=== PATIENT | female | born 1940 | race Asian ===

== ENCOUNTER 2017-01-07 10:37 | Inpatient (IN) | payer OTHER, MEDICAID ==
[2017-01-07] VITALS (25 sets, daily range): BP systolic 116–144; BP diastolic 62–96; PULSE 80–96; RESP 20–32; Ht 152.4 cm; Wt 74.9 kg
[~2017-01-07] VITALS: Ht 152.4 cm; Wt 74.9 kg
[2017-01-07] MEDS ORDERED: HEPARIN 1000 UNITS/ML 10 ML INJ IV STA (10:44)
[2017-01-07] MEDS ORDERED: AMLO-147 PO (10:54)
[2017-01-07] MEDS ORDERED: ATOR20TA38 PO (10:54)
[2017-01-07] MEDS ORDERED: TRIA0.2526 PO (10:54)
[2017-01-07] MEDS ORDERED: OLME40TA14 PO (10:55)
[2017-01-07] MEDS ORDERED: CHLO25TA13 PO (10:55)
[2017-01-07] MEDS ORDERED: METO-336 PO (10:56)
[2017-01-07] MEDS ORDERED: ANAS1TAB PO (10:56)
[2017-01-07] MEDS ORDERED: CELE200C PO (10:56)
[2017-01-07] MEDS ORDERED: ALBU18HF INHALATION (10:56)
[2017-01-07] MEDS ORDERED: LETR2.5T PO (10:57)
[2017-01-07] MEDS ORDERED: SITA100T8 PO (10:57)
--- NOTE | 2017-01-07 10:58 | ERD ---
ER Documentation Chief Complaint Chief Complaint STEMI HPI This is a 76-year-old female with a past medical history of hypertension, hyperlipidemia, diabetes, breast cancer status post left mastectomy, who is presenting with chest pain, nausea and vomiting since last night. The pain persisted this morning so an ambulance was called. Upon community program assistant arrival, there were concerns of a heart attack on EKG. She was given full dose aspirin which actually resolved her chest pain. He does not endorse any diaphoresis. The patient denies lightheadedness or dizziness. The patient currently has no chest pain or shortness of breath. The patient denies feeling sick recently. The patient felt like she might have a fever last night, but this resolved this morning. The patient has had no headache or vision changes. The patient denies abdominal pain or changes to bowel movements or urination. The patient has had no focal deficits. The patient has had no weakness or numbness or tingling to the face or extremities. ROS All systems reviewed and are negative except as per history of present illness. Medications Home Meds Reported Medications Letrozole* (Letrozole*) 2.5 Mg Tablet, 2.5 MG PO DAILY, TAB 01/07/17 Sitagliptin* (Januvia*) 100 Mg Tablet, 100 MG PO DAILY, #30 TAB 01/07/17 Anastrozole* (Arimidex*) 1 Mg Tablet, 1 MG PO DAILY, #30 TAB 01/07/17 Albuterol Sulfate* (Ventolin HFA*) 18 Gm Hfa.aer.ad, 2 PUFF INHALATION Q6H, #1 INHALER 01/07/17 Celecoxib* (Celebrex*) 200 Mg Capsule, 200 MG PO DAILY, CAP 01/07/17 Metoprolol Succinate* (Toprol XL*) 100 Mg Tab.sr.24h, 100 MG PO DAILY, #30 TAB 01/07/17 Chlorthalidone* (Chlorthalidone*) 25 Mg Tablet, 25 MG PO DAILY, TAB 01/07/17 Olmesartan Medoxomil (Benicar) 40 Mg Tablet, 40 MG PO DAILY, #30 TAB 01/07/17 Atorvastatin Calcium* (Atorvastatin Calcium*) 20 Mg Tablet, 20 MG PO QHS, #30 TAB 01/07/17 Amlodipine Besylate* (Amlodipine Besylate*) 10 Mg Tablet, 10 MG PO DAILY, #30 TAB 01/07/17 Triazolam* (Triazolam*) 0.25 Mg Tablet, 0.25 MG PO HS Y for INSOMNIA, TAB 01/07/17 Allergies Allergies: Coded Allergies: Penicillins (Verified Allergy, Unknown, 01/07/17) PMhx/Soc History of Surgery: Yes (abdominal surgery) Hx Neurological Disorder: No Hx Respiratory Disorders: Yes (COPD) Hx Cardiac Disorders: Yes (HTN, HLD, DM) Hx Psychiatric Problems: No Hx Alcohol Use: No Hx Substance Use: No Hx Tobacco Use: No Smoking Status: Never smoker FmHx Family History: coronary disease Physical Exam Vitals Vital Signs Date Time Temp Pulse Resp B/P Pulse Ox O2 Delivery O2 Flow Rate FiO2 01/07/17 11:10 93 20 134/74 99 Nasal Cannula 01/07/17 10:57 94 18 118/75 98 Nasal Cannula 01/07/17 10:43 100.4 95 18 89/54 94 01/07/17 10:37 Nasal Cannula 2 Physical Exam Const: No apparent distress, well-developed, well-nourished Head: Atraumatic Eyes: Normal Conjunctiva. Extraocular movements intact. ENT: Normal External Ears, Nose and Mouth. Neck: Full range of motion. ~ No meningismus. Resp: Clear to auscultation bilaterally Cardio: Tachycardic, regular rhythm, no murmurs Abd: Soft, non tender, non distended, BMI 32, midline abdominal surgical scar. Normal bowel sounds Skin: No petechiae or rashes Back: No midline or flank tenderness Ext: No cyanosis, or edema Neur: Awake and alert, oriented 4. Cranial nerves intact. No facial droop. Normal strength and sensation in all extremities. Coordination with finger to nose normal. Psych: Normal Mood and Affect Result Diagram: 01/07/17 1030 01/07/17 1030 Results 24 hrs Laboratory Tests Test 01/07/17 10:30 White Blood Count 8.010^3/ul Red Blood Count 6.0810^6/ul Hemoglobin 13.5g/dl Hematocrit 41.7% Mean Corpuscular Volume 68.6fl Mean Corpuscular Hemoglobin 22.2pg Mean Corpuscular Hemoglobin Concent 32.4g/dl Red Cell Distribution Width 15.7% Platelet Count 62677^3/UL Mean Platelet Volume 10.5fl Neutrophils % 88.3% Lymphocytes % 10.5% Monocytes % 0.7% Eosinophils % 0.1% Basophils % 0.2% Nucleated Red Blood Cells % 0.0/100WBC Neutrophils # 7.110^3/ul Lymphocytes # 0.810^3/ul Monocytes # 0.110^3/ul Eosinophils # 0.010^3/ul Basophils # 0.010^3/ul Nucleated Red Blood Cells # 0.010^3/ul Sodium Level 132mmol/L Potassium Level 3.7mmol/L Chloride Level 91mmol/L Carbon Dioxide Level 24mmol/L Anion Gap 21 Blood Urea Nitrogen 16mg/dl Creatinine 0.82mg/dl Glucose Level 154mg/dl Calcium Level 9.1mg/dl Troponin I 0.042ng/ml Current Medications Medications (Trade) Dose Ordered Sig/Natalie Route PRN Reason Start Time Stop Time Status Last Admin Dose Admin Heparin Sodium (Porcine) (Heparin (1000 Units/ml)) 5,000 unit ONCE STAT IV 01/07/17 10:44 01/07/17 10:45 DC 01/07/17 10:52 Heparin Sodium (Porcine) (Heparin (1000 Units/ml)) 10,000 unit STK-MED ONCE .ROUTE 01/07/17 11:14 01/07/17 11:15 DC Lidocaine 20 ml 20 ml STK-MED ONCE .ROUTE 01/07/17 11:14 01/07/17 11:15 DC Heparin Sodium/ Sodium Chloride (Heparin 1000 Units/NS (A-Line)) 1,500 ml @ ud STK-MED ONCE .ROUTE 01/07/17 11:14 01/07/17 11:15 DC Fentanyl (Sublimaze) 100 mcg STK-MED ONCE .ROUTE 01/07/17 11:14 01/07/17 11:15 DC Midazolam HCl (Versed) 2 mg STK-MED ONCE .ROUTE 01/07/17 11:14 01/07/17 11:15 DC Verapamil HCl (Verapamil) 5 mg STK-MED ONCE .ROUTE 01/07/17 11:14 01/07/17 11:15 DC Procedures/MDM MDM Patient's presentation warrants further investigation. Based on the community program assistant rhythm strip, I am concerned about acute coronary syndrome. The patient was given full dose aspirin prior to arrival to the ER with improvement of her symptoms. LABS The patient's blood work was obtained and reviewed. The patient seemed shows no leukocytosis or left shift. The patient is afebrile, and I do not suspect a systemic infection. The patient is not anemic today. The patient's platelet count is mildly low at 123, but this does not need to be emergently treated. The patient's BMP shows mild neutropenia and hyperchloremia. The patient also has an anion gap, though her CO2 is unremarkable. The patient's troponin is elevated at 0.042. EKG EKG read by me: Rate/Rhythm: Sinus Tachycardia at 104bpm Intervals: Normal [place]: Left shifted ST elevations in leads I, aVL, V3 through V6 with reciprocal changes in leads III and aVF concerning for a lateral [place]. Impression: Sinus tachycardia with acute [place] IMAGING CXR FINDINGS: The aortic arch is calcified. There is mild cardiomegaly with prominence of interstitial markings, likely due to congestive changes. There is no significant pleural effusion or pneumothorax. Osseous and soft tissue structures are unremarkable. IMPRESSION: Mild cardiomegaly with prominence of interstitial markings, likely due to congestive changes. Aortic atherosclerosis. Electronically viewed and signed by Tim Cullen Physician on 01/07/2017 10:59 TREATMENT/DISPOSITION Given the patient's symptoms and EKG, am concerned about a lateral infarct. A code STEMI was called and the electronic warfare technical on-call called to discuss the case. Dr. Shukla felt that cardiac catheterization was warranted. The patient was febrile in the emergency department, which could be a stress leading to her acute coronary syndrome. The patient did have a low systolic blood pressure 89 initially, but her blood pressure improved and the rest of her vital signs remained stable in the emergency department. She was given IV fluids in the emergency department. In addition to aspirin given prior to arrival, the patient was given heparin in the emergency department. The patient went to cardiac catheterization from the emergency department. She will be admitted to the ICU under the panel service according to her insurance. She was accepted by Dr. Carlos Eduardo Rivers for admission. Departure Diagnosis: Primary Impression: ST elevation myocardial infarction (STEMI) Involved coronary artery: unspecified coronary artery Qualified Code: I21.3 - ST elevation myocardial infarction (STEMI), unspecified artery Condition: TAMIKO Branch MD Jan 07, 2017 10:57
--- NOTE | 2017-01-07 11:00 | RADRPT ---
PROCEDURE: XR Chest. CLINICAL INDICATION: Chest Pain. TECHNIQUE: Single AP view of the chest was obtained. COMPARISON: None FINDINGS: The aortic arch is calcified. There is mild cardiomegaly with prominence of interstitial markings, likely due to congestive change s. There is no significant pleural effusion or pneumothorax. Osseous and soft tissue structures are unremarkable. IMPRESSION: Mild cardiomegaly with prominence of interstitial markings, likely due to congestive changes. Aortic atherosclerosis. RPTAT: EE Physician Yessenia Date Time Electronically viewed and signed by Tim Cullen Physician on 01/07/2017 10:59 /
[2017-01-07] MEDS ORDERED: LIDOCAINE 1% (MDV) 20 ML INJ ONE (11:14)
[2017-01-07] MEDS ORDERED: MIDAZOLAM 1 MG/ML 2 ML INJ ONE (11:14)
[2017-01-07] MEDS ORDERED: FENTAnyl 50 MCG/ML VIAL ONE (11:14)
[2017-01-07] MEDS ORDERED: HEPARIN 1000 UNITS/ML 10 ML INJ ONE (11:14)
[2017-01-07] MEDS ORDERED: VERAPAMIL 5 MG INJ ONE (11:14)
--- NOTE | 2017-01-07 11:25 | CONS ---
Date/Time of Note Date/Time of Note DATE: 01/07/17 TIME: 11:17 Assessment/Plan Assessment/Plan Chief Complaint/Hosp Course patient presents w cp on and off for one day, ekg consistent with stemi Problems: Additional Assessment/Plan STEMI lateral wall htn dm hchol thyroid disease Patient to go to labelling machine operator for possible pci. Discussed w family who translated, risks and benefits mentioned, she agrees to proceed. Further plans post cath. Consultation Date/Type/Reason Admit Date/Time 01/07/2017 Date of Consultation: Jan 07, 2017 Type of Consultation: cardiology Reason for Consultation stemi Hx of Present Illness Patient with dm, htn, dyslipidemia, and thyroid disease, h/o breast ca, presents with chest pain that started yesterday associated with shaking and dyspnea, pain has been intermittent. Son serves as general manager in training as patient speaks Amharic. At present, pain is mild. Patient automatic nailing machine feeder is Dr. Pipe Bro, treated her for per family an enlarged heart and possibly an arrhythmia. No plans for elective surgery in the next year, no allergies to contrast. Constitutional: improved, other (shaking) Eyes: no complaints ENT: no complaints Respiratory: shortness of breath Cardiovascular: chest pain Gastrointestinal: no complaints Genitourinary: no complaints Musculoskeletal: no complaints Skin: no complaints Neurologic: no complaints Endocrine: no complaints Lymphatic: no complaints Psychological: nl mood/affect, no complaints Immunologic: no complaints Past Medical History Medical History: cancer, diabetes, high cholesterol, hypertension, hyperthyroid Past Surgical History breast ca Social History Alcohol Use: none Smoking Status: Never smoker Exam/Review of Systems Vital Signs Vitals Vital Signs Date Time Temp Pulse Resp B/P Pulse Ox O2 Delivery O2 Flow Rate FiO2 01/07/17 11:10 93 20 134/74 99 Nasal Cannula 01/07/17 10:43 100.4 01/07/17 10:37 2 Exam Constitutional: alert (anxious), oriented, well developed Psych: anxiety Head: atraumatic, normocephalic Eyes: EOMI, PERRL, nl conjunctiva, nl lids, nl sclera ENMT: nl external ears & nose, nl lips & teeth, nl nasal mucosa & septum Neck: supple, No jvd Respiratory: clear to auscultation, normal air movement Cardiovascular: nl pulses (dp pulses 1+), regular rate and rhythm Gastrointestinal: nl liver, spleen, non-tender, soft Musculoskeletal: nl extremities to inspection Extremities: No edema Neurological: nl mental status, nl speech Skin: nl turgor, No rash or lesions Results Result Diagram: 01/07/17 1030 01/07/17 1030 Results 24 hrs Laboratory Tests Test 01/07/17 10:30 White Blood Count 8.0 Red Blood Count 6.08 H Hemoglobin 13.5 Hematocrit 41.7 Mean Corpuscular Volume 68.6 L Mean Corpuscular Hemoglobin 22.2 L Mean Corpuscular Hemoglobin Concent 32.4 Red Cell Distribution Width 15.7 H Platelet Count 123 L Mean Platelet Volume 10.5 H Neutrophils % 88.3 H Lymphocytes % 10.5 L Monocytes % 0.7 Eosinophils % 0.1 Basophils % 0.2 Nucleated Red Blood Cells % 0.0 Neutrophils # 7.1 Lymphocytes # 0.8 Monocytes # 0.1 L Eosinophils # 0.0 Basophils # 0.0 Nucleated Red Blood Cells # 0.0 Sodium Level 132 L Potassium Level 3.7 Chloride Level 91 L Carbon Dioxide Level 24 Anion Gap 21 H Blood Urea Nitrogen 16 Creatinine 0.82 Glucose Level 154 Calcium Level 9.1 Troponin I Pending Procedures Procedures EKG shows st elevation in i, avl, v56, v6 with reciprocal depressions in inferior leads CHLOÉ RICHARDSON Jan 07, 2017 11:24
--- NOTE | 2017-01-07 11:25 | CONS ---
Date/Time of Note Date/Time of Note DATE: 01/07/17 TIME: 11:17 Assessment/Plan Assessment/Plan Chief Complaint/Hosp Course patient presents w cp on and off for one day, ekg consistent with stemi Problems: Additional Assessment/Plan STEMI lateral wall htn dm hchol thyroid disease Patient to go to dental laboratory assistant for possible pci. Discussed w family who translated, risks and benefits mentioned, she agrees to proceed. Further plans post cath. Consultation Date/Type/Reason Admit Date/Time 01/07/2017 Date of Consultation: Jan 07, 2017 Type of Consultation: cardiology Reason for Consultation stemi Hx of Present Illness Patient with dm, htn, dyslipidemia, and thyroid disease, h/o breast ca, presents with chest pain that started yesterday associated with shaking and dyspnea, pain has been intermittent. Son serves as wet cleaner machine as patient speaks Occitan. At present, pain is mild. Patient bpo specialist is Dr. Pipe Bro, treated her for per family an enlarged heart and possibly an arrhythmia. No plans for elective surgery in the next year, no allergies to contrast. Constitutional: improved, other (shaking) Eyes: no complaints ENT: no complaints Respiratory: shortness of breath Cardiovascular: chest pain Gastrointestinal: no complaints Genitourinary: no complaints Musculoskeletal: no complaints Skin: no complaints Neurologic: no complaints Endocrine: no complaints Lymphatic: no complaints Psychological: nl mood/affect, no complaints Immunologic: no complaints Past Medical History Medical History: cancer, diabetes, high cholesterol, hypertension, hyperthyroid Past Surgical History breast ca Social History Alcohol Use: none Smoking Status: Never smoker Exam/Review of Systems Vital Signs Vitals Vital Signs Date Time Temp Pulse Resp B/P Pulse Ox O2 Delivery O2 Flow Rate FiO2 01/07/17 11:10 93 20 134/74 99 Nasal Cannula 01/07/17 10:43 100.4 01/07/17 10:37 2 Exam Constitutional: alert (anxious), oriented, well developed Psych: anxiety Head: atraumatic, normocephalic Eyes: EOMI, PERRL, nl conjunctiva, nl lids, nl sclera ENMT: nl external ears & nose, nl lips & teeth, nl nasal mucosa & septum Neck: supple, No jvd Respiratory: clear to auscultation, normal air movement Cardiovascular: nl pulses (dp pulses 1+), regular rate and rhythm Gastrointestinal: nl liver, spleen, non-tender, soft Musculoskeletal: nl extremities to inspection Extremities: No edema Neurological: nl mental status, nl speech Skin: nl turgor, No rash or lesions Results Result Diagram: 01/07/17 1030 01/07/17 1030 Results 24 hrs Laboratory Tests Test 01/07/17 10:30 White Blood Count 8.0 Red Blood Count 6.08 H Hemoglobin 13.5 Hematocrit 41.7 Mean Corpuscular Volume 68.6 L Mean Corpuscular Hemoglobin 22.2 L Mean Corpuscular Hemoglobin Concent 32.4 Red Cell Distribution Width 15.7 H Platelet Count 123 L Mean Platelet Volume 10.5 H Neutrophils % 88.3 H Lymphocytes % 10.5 L Monocytes % 0.7 Eosinophils % 0.1 Basophils % 0.2 Nucleated Red Blood Cells % 0.0 Neutrophils # 7.1 Lymphocytes # 0.8 Monocytes # 0.1 L Eosinophils # 0.0 Basophils # 0.0 Nucleated Red Blood Cells # 0.0 Sodium Level 132 L Potassium Level 3.7 Chloride Level 91 L Carbon Dioxide Level 24 Anion Gap 21 H Blood Urea Nitrogen 16 Creatinine 0.82 Glucose Level 154 Calcium Level 9.1 Troponin I Pending Procedures Procedures EKG shows st elevation in i, avl, v56, v6 with reciprocal depressions in inferior leads CHLOÉ RICHARDSON Jan 07, 2017 11:24
--- NOTE | 2017-01-07 11:25 | CONS ---
Date/Time of Note Date/Time of Note DATE: 01/07/17 TIME: 11:17 Assessment/Plan Assessment/Plan Chief Complaint/Hosp Course patient presents w cp on and off for one day, ekg consistent with stemi Problems: Additional Assessment/Plan STEMI lateral wall htn dm hchol thyroid disease Patient to go to laboratory phlebotomist for possible pci. Discussed w family who translated, risks and benefits mentioned, she agrees to proceed. Further plans post cath. Consultation Date/Type/Reason Admit Date/Time 01/07/2017 Date of Consultation: Jan 07, 2017 Type of Consultation: cardiology Reason for Consultation stemi Hx of Present Illness Patient with dm, htn, dyslipidemia, and thyroid disease, h/o breast ca, presents with chest pain that started yesterday associated with shaking and dyspnea, pain has been intermittent. Son serves as customer associate as patient speaks Syriac. At present, pain is mild. Patient claim examiner is Dr. Pipe Bro, treated her for per family an enlarged heart and possibly an arrhythmia. No plans for elective surgery in the next year, no allergies to contrast. Constitutional: improved, other (shaking) Eyes: no complaints ENT: no complaints Respiratory: shortness of breath Cardiovascular: chest pain Gastrointestinal: no complaints Genitourinary: no complaints Musculoskeletal: no complaints Skin: no complaints Neurologic: no complaints Endocrine: no complaints Lymphatic: no complaints Psychological: nl mood/affect, no complaints Immunologic: no complaints Past Medical History Medical History: cancer, diabetes, high cholesterol, hypertension, hyperthyroid Past Surgical History breast ca Social History Alcohol Use: none Smoking Status: Never smoker Exam/Review of Systems Vital Signs Vitals Vital Signs Date Time Temp Pulse Resp B/P Pulse Ox O2 Delivery O2 Flow Rate FiO2 01/07/17 11:10 93 20 134/74 99 Nasal Cannula 01/07/17 10:43 100.4 01/07/17 10:37 2 Exam Constitutional: alert (anxious), oriented, well developed Psych: anxiety Head: atraumatic, normocephalic Eyes: EOMI, PERRL, nl conjunctiva, nl lids, nl sclera ENMT: nl external ears & nose, nl lips & teeth, nl nasal mucosa & septum Neck: supple, No jvd Respiratory: clear to auscultation, normal air movement Cardiovascular: nl pulses (dp pulses 1+), regular rate and rhythm Gastrointestinal: nl liver, spleen, non-tender, soft Musculoskeletal: nl extremities to inspection Extremities: No edema Neurological: nl mental status, nl speech Skin: nl turgor, No rash or lesions Results Result Diagram: 01/07/17 1030 01/07/17 1030 Results 24 hrs Laboratory Tests Test 01/07/17 10:30 White Blood Count 8.0 Red Blood Count 6.08 H Hemoglobin 13.5 Hematocrit 41.7 Mean Corpuscular Volume 68.6 L Mean Corpuscular Hemoglobin 22.2 L Mean Corpuscular Hemoglobin Concent 32.4 Red Cell Distribution Width 15.7 H Platelet Count 123 L Mean Platelet Volume 10.5 H Neutrophils % 88.3 H Lymphocytes % 10.5 L Monocytes % 0.7 Eosinophils % 0.1 Basophils % 0.2 Nucleated Red Blood Cells % 0.0 Neutrophils # 7.1 Lymphocytes # 0.8 Monocytes # 0.1 L Eosinophils # 0.0 Basophils # 0.0 Nucleated Red Blood Cells # 0.0 Sodium Level 132 L Potassium Level 3.7 Chloride Level 91 L Carbon Dioxide Level 24 Anion Gap 21 H Blood Urea Nitrogen 16 Creatinine 0.82 Glucose Level 154 Calcium Level 9.1 Troponin I Pending Procedures Procedures EKG shows st elevation in i, avl, v56, v6 with reciprocal depressions in inferior leads CHLOÉ RICHARDSON Jan 07, 2017 11:24
[2017-01-07] MEDS ORDERED: SOD CHLORIDE 0.9% 500 ML ONE (12:49)
[2017-01-07] MEDS ORDERED: ONDANSETRON 4 MG INJ IV PRN ×2 (13:00→15:00)
[2017-01-07] MEDS ORDERED: AL HYDROX/MG HYDROX/SIMETH 30 ML CUP PO PRN (13:00)
[2017-01-07] MEDS ORDERED: ACETAMINOPHEN 325 MG TAB PO PRN ×2 (13:00→15:00)
--- NOTE | 2017-01-07 13:13 | OPPN ---
Date/Time of Note Date/Time of Note DATE: 01/07/17 TIME: 13:09 Operative Report Preoperative Diagnosis STEMI Postoperative Diagnosis left main and 3 vessel coronary disease, moderately reduced LVEF 40% Operation/Procedure Performed coronary angiogram, left heart cath, left ventriculography Surgeon see signature line assistant track and field coach na Anesthesia: moderate sedation Estimated blood loss: 50 - 100 ml's Transfusion Required none Specimen none Grafts/Implants none Complications none CHLOÉ RICHARDSON Jan 07, 2017 13:13
--- NOTE | 2017-01-07 13:13 | OPPN ---
Date/Time of Note Date/Time of Note DATE: 01/07/17 TIME: 13:09 Operative Report Preoperative Diagnosis STEMI Postoperative Diagnosis left main and 3 vessel coronary disease, moderately reduced LVEF 40% Operation/Procedure Performed coronary angiogram, left heart cath, left ventriculography Surgeon see signature line political science research assistant na Anesthesia: moderate sedation Estimated blood loss: 50 - 100 ml's Transfusion Required none Specimen none Grafts/Implants none Complications none CHLOÉ RICHARDSON Jan 07, 2017 13:13
--- NOTE | 2017-01-07 13:13 | OPPN ---
Date/Time of Note Date/Time of Note DATE: 01/07/17 TIME: 13:09 Operative Report Preoperative Diagnosis STEMI Postoperative Diagnosis left main and 3 vessel coronary disease, moderately reduced LVEF 40% Operation/Procedure Performed coronary angiogram, left heart cath, left ventriculography Surgeon see signature line kindergarten instructional assistant na Anesthesia: moderate sedation Estimated blood loss: 50 - 100 ml's Transfusion Required none Specimen none Grafts/Implants none Complications none CHLOÉ RICHARDSON Jan 07, 2017 13:13
[2017-01-07] MEDS ORDERED: SOD CHLORIDE 0.9% 1,000 ML IV SCH (13:30)
--- NOTE | 2017-01-07 13:35 | OPR ---
Date/Time of Note Date/Time of Note DATE: 01/07/17 TIME: 13:16 Operative Report Procedure Date: Jan 07, 2017 Preoperative Diagnosis STEMI lateral wall Postoperative Diagnosis LM and 3 vessel CAD, ischemic cardiomyopathy Operation/Procedure Performed Coronary angiogram Left heart cath Left ventriculography Surgeon see signature line Senior Product Development Manager Nakia CROCKER Anesthesia Type: moderate sedation Estimated Blood Loss: 50 - 100 ml's Transfusion none Specimen none Grafts/Implants none Complications none Pt Condition Post Procedure: stable Indications Intermittent chest pain for several days with ST elevations in lateral leads Procedure Description Informed consent obtained from patient family members who spoke [place] and served as interpreters for patient, given emergent nature of the procedure. She agreed to proceed and all questions answered. 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 90% discrete lesion in the mid LAD before a second smaller aneurysm, distal vessel appears to have no significant disease LCX -- ostial 40%, OM1 small with 90% ostial lesion, OM2 40% long proximal lesion, distal LCX prior to OM3 70% RCA proximal long lesion 60%, PDA proximal long lesion 80%, large RV marginal branch LV - EF 40%, apical akinesis, LVEDP 33 Procedure: The patient was brought emergently to the medical lab assistant. The right radial area was prepped and draped. Using modified Seldinger technique, access obtained in the right radial artery and a 6f sheath placed. Verapamil 2.5 mg and nitroglycerin 200 mcg given. A FL3.5 engaged the left main and JR4 engaged the RCA. Angiography performed in multiple projections under cineangiography. A pigtail catheter crossed the aortic valve. Pressures measured. All exchanges done over 260 cm J wire. A TR band was placed at the end of the procedure. No complications. Patient left in stable condition. D/W. PCP Dr. Farzana Pisano, Dr Nesbitt, Dr. Diana. Dr. Diana to consult for CABG. CHLOÉ RICHARDSON Jan 07, 2017 13:27
--- NOTE | 2017-01-07 13:35 | OPR ---
Date/Time of Note Date/Time of Note DATE: 01/07/17 TIME: 13:16 Operative Report Procedure Date: Jan 07, 2017 Preoperative Diagnosis STEMI lateral wall Postoperative Diagnosis LM and 3 vessel CAD, ischemic cardiomyopathy Operation/Procedure Performed Coronary angiogram Left heart cath Left ventriculography Surgeon see signature line Auto Service Instructor Nakia CROCKER Anesthesia Type: moderate sedation Estimated Blood Loss: 50 - 100 ml's Transfusion none Specimen none Grafts/Implants none Complications none Pt Condition Post Procedure: stable Indications Intermittent chest pain for several days with ST elevations in lateral leads Procedure Description Informed consent obtained from patient family members who spoke Turkish and served as interpreters for patient, given emergent nature of the procedure. She agreed to proceed and all questions answered. 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 90% discrete lesion in the mid LAD before a second smaller aneurysm, distal vessel appears to have no significant disease LCX -- ostial 40%, OM1 small with 90% ostial lesion, OM2 40% long proximal lesion, distal LCX prior to OM3 70% RCA proximal long lesion 60%, PDA proximal long lesion 80%, large RV marginal branch LV - EF 40%, apical akinesis, LVEDP 33 Procedure: The patient was brought emergently to the laborer [facility]. The right radial area was prepped and draped. Using modified Seldinger technique, access obtained in the right radial artery and a 6f sheath placed. Verapamil 2.5 mg and nitroglycerin 200 mcg given. A FL3.5 engaged the left main and JR4 engaged the RCA. Angiography performed in multiple projections under cineangiography. A pigtail catheter crossed the aortic valve. Pressures measured. All exchanges done over 260 cm J wire. A TR band was placed at the end of the procedure. No complications. Patient left in stable condition. D/W. PCP Dr. Farzana Pisano, Dr Nesbitt, Dr. Diana. Dr. Diana to consult for CABG. CHLOÉ RICHARDSON Jan 07, 2017 13:27
[2017-01-07] MEDS ORDERED: morphine 2 MG INJ IV PRN (15:00)
[2017-01-07] MEDS ORDERED: LORAZEPAM 2 MG INJ IV PRN (15:00)
[2017-01-07] MEDS ORDERED: hydrALAzine 20 MG INJ IV PRN (15:00)
[2017-01-07] MEDS ORDERED: NA PHOSPHATE/BIPHOS 133 ML ENEMA PR PRN (15:00)
[2017-01-07] MEDS ORDERED: DOCUSATE SODIUM 100 MG CAP PO PRN (15:00)
[2017-01-07] MEDS ORDERED: HYDROCODONE/APAP (5/325) TAB PO PRN (15:00)
[2017-01-07] MEDS ORDERED: NACL 0.9% 3 ML SYG IV SCH (15:00)
[2017-01-07] MEDS ORDERED: MAGNESIUM HYDROXIDE 30ML CUP PO PRN (15:00)
[2017-01-07] MEDS ORDERED: NITROGLYCERIN (SL) 0.4 MG TAB SL PRN (15:00)
[2017-01-07] MEDS: METOPROLOL (XL) 50 MG TAB PO SCH (16:07)
--- NOTE | 2017-01-07 16:33 | QN ---
Documentation Comment H&P dict a/p 1. cards: multivessel CAD, for cabg (b) cont secondary prevention 2. dm 3. htn 4. breast ca, cont anastrozole, cancer free x5 years per patient reprt JOB HUNT MD Jan 07, 2017 16:33
[2017-01-07] MEDS ORDERED: GLUCOSE GEL 15 GRAM TUBE BUCCAL PRN (17:00)
[2017-01-07] MEDS ORDERED: GLUCOSE GEL 15 GRAM TUBE PO PRN ×2 (17:00)
[2017-01-07] MEDS ORDERED: GLUCAGON 1 MG INJ IM PRN (17:00)
[2017-01-07] MEDS ORDERED: DEXTROSE 50% 50 ML SYRINGE IV PRN ×2 (17:00)
[2017-01-07] MEDS: LOSARTAN 25 MG TAB PO SCH ×2 (17:30→18:04)
[2017-01-07] MEDS: INSULIN ASPART [NOVOLOG] 3 ML PEN SC SCH ×2 (17:32→21:00)
--- NOTE | 2017-01-07 17:45 | HP ---
DATE OF ADMISSION: 01/07/2017 CHIEF COMPLAINT: Weakness. HISTORY OF PRESENT ILLNESS: A 76-year-old female with past medical history of high cholesterol, essential hypertension, diabetes, breast cancer status post left mastectomy, hypothyroidism, who came in because she was feeling weak that began last night. She felt like she had a flu and cold is what the family said. The family called 911 last night and they came and saw the patient at the house. The patient took aspirin and some liquids at home. She felt better, so the family was told that the symptoms were probably due to possible flu, so she went to sleep, but woke up this morning around 9 feeling similar symptoms, feeling worse, also shortness of breath, and also vomited nonbilious, nonbloody. Denied any chest pain. No headaches or dizziness. No loss of consciousness. No diarrhea or constipation. No abdominal pain. No nausea symptoms. The family called EMS again and they brought her in to the ER. Apparently per records, the patient has been told she has had an enlarged heart in the past and has seen Dr. Pipe Bro in the past. When she came in this time she was found with normal troponin, but there were abnormal EKG changes and code STEMI was called and the patient was taken to the wetlands conservation laborer where she was found with multivessel coronary artery disease. No angioplasty or stents were placed, but per recommendations from exhibition organiser today, the patient will need to have bypass surgery. The patient's family also took patient's temperature at home last night and found temperature of 100. PAST MEDICAL HISTORY: As above. ALLERGIES: PENICILLIN. MEDICATIONS: Arimidex 1 mg daily, letrozole 2.5 mg daily, Ventolin HFA 2 puffs inhaled every 6 hours, amlodipine 10 mg daily, Atorvastatin 20 mg nightly, Toprol XL 100 mg daily, Benicar 40 mg daily, Celebrex 200 mg daily, triazolam 0.5 mg nightly p.r.n., chlorthalidone 25 mg daily, Januvia 100 mg daily. PAST SURGICAL HISTORY: She has had a left mastectomy in the past and ectopic surgery in the past. FAMILY HISTORY: Noncontributory. SOCIAL HISTORY: Negative for smoking, drinking, IV drug abuse. PHYSICAL EXAMINATION: VITAL SIGNS: T-max 100.4, presently afebrile, pulse 84 to 86, respirations 22 to 27, resting blood pressure is 129/79, sating 94 percent on room air. GENERAL: The patient is lying in bed, answers questions appropriately. Family members at the bedside. No acute distress. HEENT: Pupils equal, round, react to light. Extraocular muscles intact. NECK: Supple. No thyromegaly. LUNGS: Clear to auscultation bilaterally. CARDIOVASCULAR: S1, S2 heard. No rubs or gallops. ABDOMEN: Soft, nontender, nondistended. Normal bowel sounds. No rebound or guarding. MUSCULOSKELETAL: No lower extremity bilaterally. NEUROLOGIC: No focal deficits. LABORATORY DATA: Sodium 138, potassium 3.7, chloride 91, CO2 24, BUN 16, creatinine 0.8, glucose 154, troponin 0.42. WBC 8.0, hemoglobin 13.5, hematocrit 41.7, platelets of 123. Chest x-ray was performed that shows mild cardiomegaly with prominence of interstitial markings, likely due to congestive changes. EKG was performed, which showed ST elevations in anterolateral leads, and again the patient had a heart catheterization performed today that showed on the left main it was heavily calcified eccentric distal 80 percent lesion, the LAD also showed discrete 90 percent lesion in the mid LAD, the left circumflex had 40 percent ostial lesion and obtuse marginal branch showed 90 percent ostial lesion as well, and then the RCA there was proximal long lesion of 80 percent blockage. ASSESSMENT AND PLAN: 1. A 76-year-old female coming in with weakness symptoms, vomiting, flu like symptoms, found with fever and also signs of ST-elevation myocardial infarction, status post left heart catheterization with diffuse coronary artery disease. 2. Weakness, again likely secondary to combination of patient's fever and also her ST-elevation myocardial infarction. Again, the patient will be admitted to telemetry floor. She will get a cardiothoracic surgery consult. She will need bypass surgery. She is on beta mike, aspirin, Lipitor as well, will continue those. Follow recommendations from cardiology team, also continue Cozaar. Will also check TSH, A1c, lipid panel, and trend her troponins. 3. Type 2 diabetes. Will again follow up A1c. Consider starting sliding scale insulin. 4. History of hypertension. Again see number 1. Continue current cardiac medications. 5. History of breast cancer. Again, continue monitor for now. Consider restarting patient's home chemotherapy medications as well. 6. Gastrointestinal prophylaxis. Add H2 mike. Dictated By: Rodríguez Gay MD /sandy/ross /Document#: [id number]
[2017-01-07] MEDS: morphine 2 MG INJ IV PRN (17:55)
[2017-01-07] MEDS: ATORVASTATIN 40 MG TAB PO SCH (21:29)
[2017-01-08] VITALS (12 sets, daily range): BP systolic 97–139; BP diastolic 52–79; PULSE 63–108; RESP 16–20
[2017-01-08] MEDS: DEXTROSE 5%-0.45% NACL 1,000 ML IV SCH ×2 (00:07→13:12)
[2017-01-08] MEDS: HEPARIN 25000 UNITS/250 ML 250 ML IV SCH ×3 (00:14→21:16)
[2017-01-08] MEDS: LOSARTAN 25 MG TAB PO SCH ×4 (00:20→20:06)
[2017-01-08] MEDS: ACCU-CHEK XX SCH ×2 (02:00)
--- NOTE | 2017-01-08 02:49 | HP ---
DATE OF ADMISSION: 01/07/2017 CHIEF COMPLAINT: Chest pain. HISTORY OF PRESENT ILLNESS: Mr. Pisano presents to the emergency room at [facility] with aliyah st pain. There are concerning EKG findings and she taken emergently to the powerhouse laborer, where she is f ound to have multivessel coronary artery disease and she is now being admitted in anticipation of co ronary artery bypass grafting. Patient is currently pain free. PAST MEDICAL HISTORY: Significant for: 1. Breast cancer, which patient reports was diagnosed approximately 5 years ago and she has no evid ence of disease at this time per her report. 2. Diabetes. 3. Hypertension. 4. Hyperlipidemia. OUTPATIENT MEDICATIONS: Include: 1. Lipitor 20 mg daily. 2. Aspirin 81 mg daily. 3. Anastrozole 1 mg daily. 4. Norvasc 10 mg daily. 5. Metoprolol 100 mg daily. 6. Benicar 40 mg daily. 7. Celebrex p.r.n. 8. Triazolam 0.25 mg at nighttime. 9. Chlorthalidone 25 mg daily. 10. Januvia 100 mg daily. ALLERGIES: 1. PENICILLIN. 2. STREPTOMYCIN. SOCIAL HISTORY: The patient lives at home in [place] with her son. She is independent of a ctivMieple of daily living. Denies tobacco, alcohol, or illicit drug use. FAMILY HISTORY: Noncontributory. REVIEW OF SYSTEMS: Five systems reviewed and found not to be revealing. PHYSICAL EXAMINATION: VITAL SIGNS: Blood pressure is 144/67, pulse rate 84, respirations 20, temperature is 98.4. GENERAL: Pleasant woman in no acute distress, alert and oriented x3. HEENT: Normocephalic, atraumatic without scleral icterus, perioral cyanosis. Mucous membranes are moist. NECK: Soft and supple without masses. No jugular venous distention or carotid bruits. CHEST: Clear to auscultation and percussion anteriorly. HEART: Regular rate and rhythm, S1-S2, no added sounds. ABDOMEN: Soft, nontender, nondistended without palpable hepatosplenomegaly. EXTREMITIES: Without clubbing, cyanosis, or edema. Pedal pulses are not palpable. Feet are warm. SKIN: Without rashes. NEUROLOGIC: Grossly intact. LABORATORY STUDIES: Reveal hemoglobin 13.5 g/dL, white count of 8000, platelets of 123,000. Sodium 132, potassium 3.7, chloride 91, bicarbonate 24, BUN 16, creatinine 0.82, glucose 154. Chest x-ray is normal. Results of coronary angiogram are reviewed. Case is discussed with Dr. Méndez. ASSESSMENT AND PLAN: 1. Cardiac: The patient with chest pain and multivessel coronary artery disease for coronary arter y bypass grafting. Continue secondary prevention. 2. Diabetes. Continue Accu-Cheks and sliding scale. 3. Hypertension. 4. Breast cancer. The patient reportedly disease free for 5 years. This should not likely impact the decision for cardiac surgery. 5. Prophylaxis with TEDs and SCDs. Dictated By: JOB HUNT MD RER/NTS Conf#: [id number] DID#: [id number]
--- NOTE | 2017-01-08 02:49 | HP ---
DATE OF ADMISSION: 01/07/2017 CHIEF COMPLAINT: Chest pain. HISTORY OF PRESENT ILLNESS: Mr. Pisano presents to the emergency room at [facility] with aliyah st pain. There are concerning EKG findings and she taken emergently to the shellfish processing laborer, where she is f ound to have multivessel coronary artery disease and she is now being admitted in anticipation of co ronary artery bypass grafting. Patient is currently pain free. PAST MEDICAL HISTORY: Significant for: 1. Breast cancer, which patient reports was diagnosed approximately 5 years ago and she has no evid ence of disease at this time per her report. 2. Diabetes. 3. Hypertension. 4. Hyperlipidemia. OUTPATIENT MEDICATIONS: Include: 1. Lipitor 20 mg daily. 2. Aspirin 81 mg daily. 3. Anastrozole 1 mg daily. 4. Norvasc 10 mg daily. 5. Metoprolol 100 mg daily. 6. Benicar 40 mg daily. 7. Celebrex p.r.n. 8. Triazolam 0.25 mg at nighttime. 9. Chlorthalidone 25 mg daily. 10. Januvia 100 mg daily. ALLERGIES: 1. PENICILLIN. 2. STREPTOMYCIN. SOCIAL HISTORY: The patient lives at home in [place] with her son. She is independent of a [employer] of daily living. Denies tobacco, alcohol, or illicit drug use. FAMILY HISTORY: Noncontributory. REVIEW OF SYSTEMS: Five systems reviewed and found not to be revealing. PHYSICAL EXAMINATION: VITAL SIGNS: Blood pressure is 144/67, pulse rate 84, respirations 20, temperature is 98.4. GENERAL: Pleasant woman in no acute distress, alert and oriented x3. HEENT: Normocephalic, atraumatic without scleral icterus, perioral cyanosis. Mucous membranes are moist. NECK: Soft and supple without masses. No jugular venous distention or carotid bruits. CHEST: Clear to auscultation and percussion anteriorly. HEART: Regular rate and rhythm, S1-S2, no added sounds. ABDOMEN: Soft, nontender, nondistended without palpable hepatosplenomegaly. EXTREMITIES: Without clubbing, cyanosis, or edema. Pedal pulses are not palpable. Feet are warm. SKIN: Without rashes. NEUROLOGIC: Grossly intact. LABORATORY STUDIES: Reveal hemoglobin 13.5 g/dL, white count of 8000, platelets of 123,000. Sodium 132, potassium 3.7, chloride 91, bicarbonate 24, BUN 16, creatinine 0.82, glucose 154. Chest x-ray is normal. Results of coronary angiogram are reviewed. Case is discussed with Dr. Méndez. ASSESSMENT AND PLAN: 1. Cardiac: The patient with chest pain and multivessel coronary artery disease for coronary arter y bypass grafting. Continue secondary prevention. 2. Diabetes. Continue Accu-Cheks and sliding scale. 3. Hypertension. 4. Breast cancer. The patient reportedly disease free for 5 years. This should not likely impact the decision for cardiac surgery. 5. Prophylaxis with TEDs and SCDs. Dictated By: JOB HUNT MD RER/NTS Conf#: [id number] DID#: [id number]
--- NOTE | 2017-01-08 02:49 | HP ---
DATE OF ADMISSION: 01/07/2017 CHIEF COMPLAINT: Chest pain. HISTORY OF PRESENT ILLNESS: Mr. Pisano presents to the emergency room at [facility] with aliyah st pain. There are concerning EKG findings and she taken emergently to the mine laborer, where she is f ound to have multivessel coronary artery disease and she is now being admitted in anticipation of co ronary artery bypass grafting. Patient is currently pain free. PAST MEDICAL HISTORY: Significant for: 1. Breast cancer, which patient reports was diagnosed approximately 5 years ago and she has no evid ence of disease at this time per her report. 2. Diabetes. 3. Hypertension. 4. Hyperlipidemia. OUTPATIENT MEDICATIONS: Include: 1. Lipitor 20 mg daily. 2. Aspirin 81 mg daily. 3. Anastrozole 1 mg daily. 4. Norvasc 10 mg daily. 5. Metoprolol 100 mg daily. 6. Benicar 40 mg daily. 7. Celebrex p.r.n. 8. Triazolam 0.25 mg at nighttime. 9. Chlorthalidone 25 mg daily. 10. Januvia 100 mg daily. ALLERGIES: 1. PENICILLIN. 2. STREPTOMYCIN. SOCIAL HISTORY: The patient lives at home in [place] with her son. She is independent of a ctivffk environment of daily living. Denies tobacco, alcohol, or illicit drug use. FAMILY HISTORY: Noncontributory. REVIEW OF SYSTEMS: Five systems reviewed and found not to be revealing. PHYSICAL EXAMINATION: VITAL SIGNS: Blood pressure is 144/67, pulse rate 84, respirations 20, temperature is 98.4. GENERAL: Pleasant woman in no acute distress, alert and oriented x3. HEENT: Normocephalic, atraumatic without scleral icterus, perioral cyanosis. Mucous membranes are moist. NECK: Soft and supple without masses. No jugular venous distention or carotid bruits. CHEST: Clear to auscultation and percussion anteriorly. HEART: Regular rate and rhythm, S1-S2, no added sounds. ABDOMEN: Soft, nontender, nondistended without palpable hepatosplenomegaly. EXTREMITIES: Without clubbing, cyanosis, or edema. Pedal pulses are not palpable. Feet are warm. SKIN: Without rashes. NEUROLOGIC: Grossly intact. LABORATORY STUDIES: Reveal hemoglobin 13.5 g/dL, white count of 8000, platelets of 123,000. Sodium 132, potassium 3.7, chloride 91, bicarbonate 24, BUN 16, creatinine 0.82, glucose 154. Chest x-ray is normal. Results of coronary angiogram are reviewed. Case is discussed with Dr. Méndez. ASSESSMENT AND PLAN: 1. Cardiac: The patient with chest pain and multivessel coronary artery disease for coronary arter y bypass grafting. Continue secondary prevention. 2. Diabetes. Continue Accu-Cheks and sliding scale. 3. Hypertension. 4. Breast cancer. The patient reportedly disease free for 5 years. This should not likely impact the decision for cardiac surgery. 5. Prophylaxis with TEDs and SCDs. Dictated By: JOB HUNT MD RER/NTS Conf#: [id number] DID#: [id number]
[2017-01-08] MEDS: INSULIN ASPART [NOVOLOG] 3 ML PEN SC SCH ×4 (08:00→20:13)
[2017-01-08] MEDS: ASPIRIN 81 MG TAB PO SCH (08:07)
[2017-01-08] MEDS: METOPROLOL (XL) 50 MG TAB PO SCH ×2 (08:08→12:03)
[2017-01-08] MEDS ORDERED: HEPARIN 1000 UNITS/ML 10 ML INJ IV PRN (08:30)
[2017-01-08] MEDS ORDERED: HEPARIN 1000 UNITS/ML 10 ML INJ IV ONE (08:30)
--- NOTE | 2017-01-08 09:29 | PN ---
Date/Time of Note Date/Time of Note DATE: 01/08/17 TIME: 09:27 Assessment/Plan VTE Prophylaxis VTE Prophylaxis Intervention: heparin Lines/Catheters IV Catheter Type (from Nrsg): Peripheral IV Assessment/Plan Assessment/Plan 1. cards: s/p stemi and cath with multivessel disease, await plan for surgical intervention (b) current leukocytosis, likely related to crdiac event, check UA, monitor 2. dm Subjective 24 Hr Interval Summary Free Text/Dictation no complaints, no cough, no dysuria, no abdo pain Exam/Review of Systems Vital Signs Vitals Vital Signs Date Time Temp Pulse Resp B/P Pulse Ox O2 Delivery O2 Flow Rate FiO2 01/08/17 08:15 69 01/08/17 08:06 98.4 20 97/52 97 01/08/17 01:35 Nasal Cannula 2.0 Intake and Output 01/07/17 01/07/17 01/08/17 15:00 23:00 07:00 Intake Total 120 ml 100 ml 1179 ml Output Total 240 ml 400 ml Balance -120 ml -300 ml 1179 ml Exam Constitutional: alert Respiratory: clear to auscultation Cardiovascular: regular rate and rhythm Gastrointestinal: non-tender, soft Results Result Diagram: 01/08/17 0733 01/08/17 0733 Results 24 hrs Laboratory Tests Test 01/07/17 10:30 01/07/17 16:30 01/07/17 17:09 01/07/17 21:32 White Blood Count 8.0 18.9 #H Red Blood Count 6.08 H 5.59 H Hemoglobin 13.5 12.0 Hematocrit 41.7 38.2 Mean Corpuscular Volume 68.6 L 68.3 L Mean Corpuscular Hemoglobin 22.2 L 21.5 L Mean Corpuscular Hemoglobin Concent 32.4 31.4 L Red Cell Distribution Width 15.7 H 15.7 H Platelet Count 123 L 138 L Mean Platelet Volume 10.5 H 11.3 H Neutrophils % 88.3 H Lymphocytes % 10.5 L Monocytes % 0.7 Eosinophils % 0.1 Basophils % 0.2 Nucleated Red Blood Cells % 0.0 0.0 Neutrophils # 7.1 Lymphocytes # 0.8 Monocytes # 0.1 L Eosinophils # 0.0 Basophils # 0.0 Nucleated Red Blood Cells # 0.0 Sodium Level 132 L Potassium Level 3.7 Chloride Level 91 L Carbon Dioxide Level 24 Anion Gap 21 H Blood Urea Nitrogen 16 Creatinine 0.82 Glucose Level 154 Calcium Level 9.1 Troponin I 0.042 2.510 *H Segmented Neutrophils % (Manual) 69 Band Neutrophils % (Manual) 19 H Lymphocytes % (Manual) 9 L Reactive Lymphocytes % (Manual) 1 H Monocytes % (Manual) 2 Neutrophils # (Manual) 13.7 H Band Neutrophils # 3.5 H Absolute Lymphocytes (Manual) 1.7 Reactive Lymphocytes # 0.1 H Absolute Monocytes (Manual) 0.3 Giant Platelets 1 H Platelet Morphology Comment @See below Poikilocytosis 2+ Spherocytes 1+ Ovalocytes 1+ Elliptocytes 1+ Schistocytes 1+ Creatine Kinase 347 H Creatine Kinase Index 3.7 Creatinine Kinase MB (Mass) 12.70 H Free Thyroxine 1.54 Bedside Glucose 160 133 Test 01/07/17 23:58 01/08/17 00:04 01/08/17 06:00 01/08/17 07:33 Creatine Kinase 365 H Creatine Kinase Index 3.4 Creatinine Kinase MB (Mass) 12.40 H Troponin I 5.010 *H 5.850 *H Prothrombin Time 15.0 H Prothrombin Time Ratio 1.2 INR International Normalized Ratio 1.17 Activated Partial Thromboplast Time 37.8 H 117.6 *H Hemoglobin A1c 6.5 H White Blood Count 20.9 H Red Blood Count 4.90 Hemoglobin 10.8 L Hematocrit 33.6 L Mean Corpuscular Volume 68.6 L Mean Corpuscular Hemoglobin 22.0 L Mean Corpuscular Hemoglobin Concent 32.1 Red Cell Distribution Width 15.6 H Platelet Count 110 #L Mean Platelet Volume 11.4 H Neutrophils % 85.5 H Lymphocytes % 6.9 L Monocytes % 5.7 Eosinophils % 0.0 Basophils % 0.1 Nucleated Red Blood Cells % 0.0 Neutrophils # 17.8 H Lymphocytes # 1.4 Monocytes # 1.2 H Eosinophils # 0.0 Basophils # 0.0 Nucleated Red Blood Cells # 0.0 Sodium Level 130 L Potassium Level 3.6 Chloride Level 96 L Carbon Dioxide Level 28 Anion Gap 10 # Blood Urea Nitrogen 18 Creatinine 0.83 Glucose Level 120 Calcium Level 7.6 L Phosphorus Level 3.3 Magnesium Level 1.8 Triglycerides Level 42 Cholesterol Level 72 L LDL Cholesterol, Calculated 31 HDL Cholesterol 33 Cholesterol/HDL Ratio 2.1 Thyroid Stimulating Hormone (TSH) 0.611 Test 01/08/17 07:59 Bedside Glucose 130 Medications Medications Current Medications Miscellaneous Information (* Miscellaneous Pharmacy Order) HOLD all METFORMIN ... ONCE XX ; Start 01/07/17 at 13:00; Stop 01/09/17 at 12:59 Acetaminophen (Tylenol Tab) 650 mg Q4H PRN PO NON-CARDIAC PAIN LEVEL (1-3) Last administered on 01/07/17 16:06; Admin Dose 650 MG; Start 01/07/17 at 13: 00 Morphine Sulfate (morphine) 2 mg Q2H PRN IV FOR NON CARDIAC PAIN (4-10) Last administered on 01/07/17 17:55; Admin Dose 2 MG; Start 01/07/17 at 13:00 Al Hydrox/Mg Hydrox/Simethicone (Mag-Al Plus) 30 ml Q4H PRN PO GASTROINTESTINAL UPSET; Start 01/07/17 at 13:00 Ondansetron HCl (Zofran Inj) 4 mg Q4H PRN IV NAUSEA AND/OR VOMITING Last administered on 01/07/17 18:03; Admin Dose 4 MG; Start 01/07/17 at 13:00 Metoprolol Succinate (Toprol Xl) 50 mg DAILY PO Last administered on 16:07; Admin Dose 50 MG; Start 01/07/17 at 16:00 Losartan Potassium (Cozaar) 25 mg BID PO Last administered on 01/07/17 18:04 ; Admin Dose 25 MG; Start 01/07/17 at 16:00 Atorvastatin Calcium (Lipitor) 40 mg QHS PO Last administered on 01/07/17 21: 29; Admin Dose 40 MG; Start 01/07/17 at 21:00 Aspirin (Aspirin) 81 mg DAILY PO Last administered on 01/08/17 08:07; Admin Dose 81 MG; Start 01/08/17 at 09:00 Ondansetron HCl (Zofran Inj) 4 mg Q6H PRN IV NAUSEA AND/OR VOMITING; Start at 15:00 Acetaminophen (Tylenol Tab) 650 mg Q6H PRN PO PAIN LEVEL 1-3 OR FEVER; Start 01/07/17 at 15:00 Acetaminophen/ Hydrocodone Bitart ([place] (5/325)) 1 tab Q6H PRN PO MODERATE PAIN LEVEL 4-6; Start 01/07/17 at 15:00 Morphine Sulfate (morphine) 2 mg Q4H PRN IV SEVERE PAIN LEVEL 7-10; Start at 15:00 Docusate Sodium (Colace) 100 mg Q12H PRN PO CONSTIPATION; Start 01/07/17 at 15 :00 Magnesium Hydroxide (Milk Of Mag) 30 ml DAILY PRN PO CONSTIPATION; Start 01/07 at 15:00 Sodium Biphosphate/ Sodium Phosphate (Fleet Enema) 133 ml DAILY PRN DE CONSTIPATION; Start 01/07/17 at 15:00 Lorazepam (Ativan) 0.5 mg Q6H PRN IV ANXIETY; Start 01/07/17 at 15:00 Hydralazine HCl (Apresoline) 10 mg Q6H PRN IV ELEVATED BLOOD PRESSURE; Start 01/07/17 at 15:00 Nitroglycerin (Nitroglycerin (Sl Tab) 0.4 Mg) 1 tab Q5M PRN SL ANGINA; Start 01/07/17 at 15:00 Diagnostic Test (Pha) (Accu-Chek) 1 ea 02 XX ; Start 01/08/17 at 02:00 Diagnostic Test (Pha) (Accu-Chek) 1 ea 02 XX ; Start 01/08/17 at 02:00 Miscellaneous Information 1 ea NOTE XX ; Start 01/07/17 at 17:00 Glucose (Glutose) 15 gm Q15M PRN PO DECREASED GLUCOSE; Start 01/07/17 at 17:00 Glucose (Glutose) 22.5 gm Q15M PRN PO DECREASED GLUCOSE; Start 01/07/17 at 17: 00 Dextrose (D50w Syringe) 25 ml Q15M PRN IV DECREASED GLUCOSE; Start 01/07/17 at 17:00 Dextrose (D50w Syringe) 50 ml Q15M PRN IV DECREASED GLUCOSE; Start 01/07/17 at 17:00 Glucagon (Glucagen) 1 mg Q15M PRN IM DECREASED GLUCOSE; Start 01/07/17 at 17: 00 Glucose 15 gm 15 gm Q15M PRN BUCCAL DECREASED GLUCOSE; Start 01/07/17 at 17:00 Dextrose/Sodium Chloride (D5-1/2ns) 1,000 ml @ 75 mls/hr [id number] IV Last administered on 01/08/17t 00:07; Admin Dose 75 MLS/HR; Start 01/07/17 at 23:30 JOB HUNT MD Jan 08, 2017 09:29
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
--- NOTE | 2017-01-08 14:52 | RADRPT ---
PROCEDURE: Carotid ultrasound CLINICAL INDICATION: Preoperative examination TECHNIQUE: Marie scale, color doppler, spectral doppler ultrasound of the bilateral carotid and jairo tebral arteries. This study indirectly references the measurement of the distal ICA diameter as the denominator for s tenosis measurement. Validated velocity measurements with angiographic measurements, velocity criter ia are extrapolated from diameter data as defined by: *Cartoid artery stenosis: marie-scale and Doppl er US diagnosis. Society of Radiologists in Ultrasound Consensus Conference. Radiology 2003; 229: 34 0-346. SRU Consensus Conference Criteria for the Diagnosis of Carotid Artery Stenosis* Degree of Stenosis, % ICA PSV, cm/sec Plaque Estimate, % ICA/CCA PSV Ratio Normal <125 None <2.0 <50 <125 <50 <2.0 50 69 125-230 >50 2.0-4.0 >70 but less than near occlusion >230 >50 <4.0 Near occlusion High, low, or undetectable Visible Variable Total occlusion Undetectable Visible, no detectable lumen Not applicable COMPARISON: No prior studies are available for comparison. FINDINGS: Location Right CCA71 - 78 cm/sec Prox ICA 57 cm/sec Mid ICA54 cm/sec Dist ICA59 cm/sec ECA76 cm/sec ICA/CCA0.9 Left CCA69 - 79 cm/sec Prox ICA 87 cm/sec Mid ICA82 cm/sec Dist ICA49 cm/sec ECA72 cm/sec ICA/CCA1.3 Plaque burden: Diffuse plaque is present bilaterally involving the common and internal carotid arter ies without evidence of flow acceleration to suggest a hemodynamically significant stenosis. Antegrade flow is seen within the vertebral arteries bilaterally. IMPRESSION: Plaques are present within both internal carotid arteries without evidence of flow acceleration to s uggest a hemodynamically significant stenosis; less than 50% stenosis bilaterally. RPTAT: AADD .Michael Ramírez MD, Date Time Electronically viewed and signed by .Michael Ramírez MD, MD on 01/08/2017 14:52 .B/
[2017-01-08] MEDS: CEFTRIAXONE 1 GM/50 ML (PMX) 50 ML IVPB SCH (18:55)
[2017-01-08] MEDS: ATORVASTATIN 40 MG TAB PO SCH (20:05)
[2017-01-09] VITALS (12 sets, daily range): BP systolic 102–139; BP diastolic 60–87; PULSE 70–85; RESP 16–20
[2017-01-09] MEDS: morphine 2 MG INJ IV PRN (01:47)
[2017-01-09] MEDS: ACCU-CHEK XX SCH ×2 (02:09)
[2017-01-09] MEDS: DEXTROSE 5%-0.45% NACL 1,000 ML IV SCH (02:43)
[2017-01-09] MEDS: HEPARIN 25000 UNITS/250 ML 250 ML IV SCH ×4 (02:44→22:06)
[2017-01-09] MEDS ORDERED: ZOLPIDEM 5 MG TAB PO SCH (03:04)
[2017-01-09] MEDS: METOPROLOL (XL) 50 MG TAB PO SCH (08:15)
[2017-01-09] MEDS: ASPIRIN 81 MG TAB PO SCH (08:16)
[2017-01-09] MEDS: LOSARTAN 25 MG TAB PO SCH ×2 (08:16→20:27)
[2017-01-09] MEDS: INSULIN ASPART [NOVOLOG] 3 ML PEN SC SCH ×4 (08:17→20:26)
--- NOTE | 2017-01-09 14:13 | PN ---
Date/Time of Note Date/Time of Note DATE: 01/09/17 TIME: 13:03 Assessment/Plan VTE Prophylaxis VTE Prophylaxis Intervention: heparin (gtt for AMI ) Lines/Catheters IV Catheter Type (from Nrs): Peripheral IV Assessment/Plan Assessment/Plan 76-year-old female: 1. STEMI, in setting of flulike symptoms and febrile illness, patient status post angiogram with finding of 3 vessel disease and likely aortic valve disease. 2D echocardiogram pending, appreciate recommendations from cardiothoracic surgery. Currently on heparin drip and medical management for acute NC along with treatment of underlying febrile illness. Follow-up further cardiology recommendations. Per cardiothoracic surgery, Dr. Diana, patient needs to be treated for this acute illness first prior to undergoing surgical revascularization and possibly aortic valve replacement. 2. Gram-negative damion UTI, patient presented with febrile illness and generalized weakness. Continue Rocephin for now, monitor white blood cell count and final microbiology results to adjust antibiotics as needed. 3. Diabetes mellitus, on Januvia as an outpatient, per family members patient was not diagnosed with diabetes mellitus prior, unclear who prescribed been when Januvia was prescribed. A1c 6.5. Agree with sliding scale insulin and ADA diet. 4. Hypertension. Continue current cardiac medications, further adjustments as needed. 5. Breast cancer. Resume outpatient medications Prophylaxis: GI prophylaxis with Pepcid, Disposition: Patient to be stabilized medically, treating UTI, medical management of acute NC, appreciate recommendations from cardiothoracic surgery, patient supposed to move to [place] by 01/11 and get further medical care in [place]. Per cardiothoracic surgery she can have her surgical revascularization in [place] in a week at the earliest. Subjective 24 Hr Interval Summary Free Text/Dictation Patient feels better, however still having trouble tolerating p.o., she is nauseous and apparently vomiting with p.o. intake. Afebrile, white blood cell count still 21K. Urine culture positive with gram-negative rods. On Rocephin currently. Appreciate recommendations from cardiothoracic surgery, follow-up recommendation from cardiology. Patient still on heparin drip. Follow-up labs today. Exam/Review of Systems Vital Signs Vitals Vital Signs Date Time Temp Pulse Resp B/P Pulse Ox O2 Delivery O2 Flow Rate FiO2 01/09/17 12:05 85 01/09/17 11:58 98.8 17 139/82 95 01/08/17 20:15 Nasal Cannula 2.0 Intake and Output 01/08/17 01/08/17 01/09/17 15:00 23:00 07:00 Intake Total 650 ml 1153.9 ml 1345.0 ml Output Total 500 ml 600 ml Balance 650 ml 653.9 ml 745.0 ml Exam Constitutional: alert, obese, oriented, well developed Respiratory: diminished breath sounds (At the bases bilaterally, some expiratory wheezes can be heard.), wheezing (Occasional expiratory) Cardiovascular: nl pulses, regular rate and rhythm Gastrointestinal: non-tender, soft Musculoskeletal: nl extremities to inspection Extremities: normal pulses, other (No clubbing, cyanosis. No edema) Neurological: ACCOUNT SERVICES SPECIALIST II-XII intact, nl mental status, nl speech, nl strength Results Result Diagram: 01/09/17 0343 01/08/17 0733 Results 24 hrs Laboratory Tests Test 01/08/17 13:35 01/08/17 14:05 01/08/17 17:21 01/08/17 20:08 Activated Partial Thromboplast Time 65.8 H 92.6 *H Urine Color YELLOW Urine Clarity SLIGHTLY CLOUDY A Urine pH 5.0 Urine Specific [place] 1.014 Urine Ketones NEGATIVE Urine Nitrite POSITIVE A Urine Bilirubin NEGATIVE Urine Urobilinogen NEGATIVE Urine Leukocyte Esterase 2+ H Urine Microscopic RBC 2 Urine Microscopic WBC 82 H Urine Bacteria MANY A Urine Hemoglobin 1+ H Urine Glucose 2+ H Urine Total Protein 1+ H Bedside Glucose 210 Test 01/08/17 20:10 01/09/17 01:49 01/09/17 03:42 01/09/17 03:43 Bedside Glucose 185 148 Activated Partial Thromboplast Time 74.7 *H White Blood Count 21.2 H Red Blood Count 4.99 Hemoglobin 10.8 L Hematocrit 33.5 L Mean Corpuscular Volume 67.1 L Mean Corpuscular Hemoglobin 21.6 L Mean Corpuscular Hemoglobin Concent 32.2 Red Cell Distribution Width 15.8 H Platelet Count 102 L Mean Platelet Volume Neutrophils % 80.3 H Lymphocytes % 8.2 L Monocytes % 6.8 Eosinophils % 0.1 Basophils % 0.1 Nucleated Red Blood Cells % 0.0 Neutrophils # 17.0 H Lymphocytes # 1.7 Monocytes # 1.4 H Eosinophils # 0.0 Basophils # 0.0 Nucleated Red Blood Cells # 0.0 Test 01/09/17 08:10 01/09/17 11:53 01/09/17 12:19 Bedside Glucose 151 178 Activated Partial Thromboplast Time 56.7 H Medications Medications Current Medications Miscellaneous Information (* Miscellaneous Pharmacy Order) HOLD all METFORMIN ... ONCE XX ; Start 01/07/17 at 13:00; Stop 01/09/17 at 12:59 Acetaminophen (Tylenol Tab) 650 mg Q4H PRN PO NON-CARDIAC PAIN LEVEL (1-3) Last administered on 01/07/17 16:06; Admin Dose 650 MG; Start 01/07/17 at 13: 00 Morphine Sulfate (morphine) 2 mg Q2H PRN IV FOR NON CARDIAC PAIN (4-10) Last administered on 01/09/17 01:47; Admin Dose 2 MG; Start 01/07/17 at 13:00 Al Hydrox/Mg Hydrox/Simethicone (Mag-Al Plus) 30 ml Q4H PRN PO GASTROINTESTINAL UPSET; Start 01/07/17 at 13:00 Ondansetron HCl (Zofran Inj) 4 mg Q4H PRN IV NAUSEA AND/OR VOMITING Last administered on 01/07/17 18:03; Admin Dose 4 MG; Start 01/07/17 at 13:00 Metoprolol Succinate (Toprol Xl) 50 mg DAILY PO Last administered on 08:15; Admin Dose 50 MG; Start 01/07/17 at 16:00 Losartan Potassium (Cozaar) 25 mg BID PO Last administered on 01/09/17 08:16 ; Admin Dose 25 MG; Start 01/07/17 at 16:00 Atorvastatin Calcium (Lipitor) 40 mg QHS PO Last administered on 01/08/17 20: 05; Admin Dose 40 MG; Start 01/07/17 at 21:00 Aspirin (Aspirin) 81 mg DAILY PO Last administered on 01/09/17 08:16; Admin Dose 81 MG; Start 01/08/17 at 09:00 Ondansetron HCl (Zofran Inj) 4 mg Q6H PRN IV NAUSEA AND/OR VOMITING; Start at 15:00 Acetaminophen (Tylenol Tab) 650 mg Q6H PRN PO PAIN LEVEL 1-3 OR FEVER Last administered on 01/08/17 15:54; Admin Dose 650 MG; Start 01/07/17 at 15:00 Acetaminophen/ Hydrocodone Bitart ([place] (5/325)) 1 tab Q6H PRN PO MODERATE PAIN LEVEL 4-6; Start 01/07/17 at 15:00 Morphine Sulfate (morphine) 2 mg Q4H PRN IV SEVERE PAIN LEVEL 7-10; Start at 15:00 Docusate Sodium (Colace) 100 mg Q12H PRN PO CONSTIPATION; Start 01/07/17 at 15 :00 Magnesium Hydroxide (Milk Of Mag) 30 ml DAILY PRN PO CONSTIPATION; Start 01/07 at 15:00 Sodium Biphosphate/ Sodium Phosphate (Fleet Enema) 133 ml DAILY PRN DC CONSTIPATION; Start 01/07/17 at 15:00 Lorazepam (Ativan) 0.5 mg Q6H PRN IV ANXIETY; Start 01/07/17 at 15:00 Hydralazine HCl (Apresoline) 10 mg Q6H PRN IV ELEVATED BLOOD PRESSURE; Start 01/07/17 at 15:00 Nitroglycerin (Nitroglycerin (Sl Tab) 0.4 Mg) 1 tab Q5M PRN SL ANGINA; Start 01/07/17 at 15:00 Diagnostic Test (Pha) (Accu-Chek) 1 ea 02 XX Last administered on 01/09/17 02 :09; Admin Dose 1 EA; Start 01/08/17 at 02:00 Diagnostic Test (Pha) (Accu-Chek) 1 ea 02 XX Last administered on 01/09/17 02 :09; Admin Dose 1 EA; Start 01/08/17 at 02:00 Miscellaneous Information 1 ea NOTE XX ; Start 01/07/17 at 17:00 Glucose (Glutose) 15 gm Q15M PRN PO DECREASED GLUCOSE; Start 01/07/17 at 17:00 Glucose (Glutose) 22.5 gm Q15M PRN PO DECREASED GLUCOSE; Start 01/07/17 at 17: 00 Dextrose (D50w Syringe) 25 ml Q15M PRN IV DECREASED GLUCOSE; Start 01/07/17 at 17:00 Dextrose (D50w Syringe) 50 ml Q15M PRN IV DECREASED GLUCOSE; Start 01/07/17 at 17:00 Glucagon (Glucagen) 1 mg Q15M PRN IM DECREASED GLUCOSE; Start 01/07/17 at 17: 00 Glucose 15 gm 15 gm Q15M PRN BUCCAL DECREASED GLUCOSE; Start 01/07/17 at 17:00 Dextrose/Sodium Chloride 1,000 ml @ 75 mls/hr [id number] IV Last administered on 01/09/17 02:43; Admin Dose 75 MLS/HR; Start 01/07/17 at 23:30 Ceftriaxone Sodium (Rocephin) 50 ml @ 100 mls/hr Q24H IVPB Last administered on 01/08/17 18:55; Admin Dose 100 MLS/HR; Start 01/08/17 at 17:00 THANG BELLE Jan 09, 2017 13:16
--- NOTE | 2017-01-09 15:28 | RADRPT ---
PROCEDURE: XR Chest. CLINICAL INDICATION: Chest pain TECHNIQUE: A single portable view of the chest was obtained. COMPARISON: 01/07/2017 FINDINGS: The aorta is tortuous and atherosclerotic. The cardiomediastinal silhouette is otherwise enlarged a nd is unchanged. Bilateral costophrenic angle blunting is seen which may represent a small pleural e ffusions. Prominence of the interstitial markings are once again seen. No dense consolidation is see n. The soft tissues and osseous structures demonstrate benign age related senescent changes. IMPRESSION: Probable small bilateral pleural effusions with common interstitial markings which may represent int erstitial pulmonary edema and is again noted and stable. RPTAT: HPNM Physician Neville Date Time Electronically viewed and signed by Grover Leslie Physician on 01/09/2017 15:28 /
[2017-01-09] MEDS ORDERED: POTASSIUM CHLORIDE (SR) 20 MEQ TAB PO STA (16:00)
[2017-01-09] MEDS: CEFTRIAXONE 1 GM/50 ML (PMX) 50 ML IVPB SCH (16:18)
[2017-01-09] MEDS ORDERED: MAGNESIUM SULFATE 1 GM/D5W 100 ML IVPB ONE (17:00)
[2017-01-09] MEDS: NS + KCL 20 MEQ 1,000 ML IV SCH (17:09)
[2017-01-09] MEDS: ATORVASTATIN 40 MG TAB PO SCH (20:27)
[2017-01-10] VITALS (12 sets, daily range): BP systolic 115–150; BP diastolic 68–83; PULSE 80–93; RESP 17–20
[2017-01-10] MEDS: ACCU-CHEK XX SCH ×3 (00:05→23:34)
[2017-01-10] MEDS: ALBUTEROL/IPRATROPIUM (NEB) 3 ML AMP HHN PRN ×2 (01:43→08:16)
[2017-01-10] MEDS: NS + KCL 20 MEQ 1,000 ML IV SCH ×4 (03:20→23:36)
[2017-01-10] MEDS: HEPARIN 25000 UNITS/250 ML 250 ML IV SCH (06:45)
[2017-01-10] MEDS: INSULIN ASPART [NOVOLOG] 3 ML PEN SC SCH ×4 (08:00→21:00)
[2017-01-10] MEDS: LOSARTAN 25 MG TAB PO SCH ×2 (09:40→23:39)
[2017-01-10] MEDS: ASPIRIN 81 MG TAB PO SCH (09:40)
[2017-01-10] MEDS: METOPROLOL (XL) 50 MG TAB PO SCH (09:40)
--- NOTE | 2017-01-10 10:10 | RADRPT ---
PROCEDURE: XR Chest. CLINICAL INDICATION: Respiratory distress . TECHNIQUE: Single frontal chest x-ray. COMPARISON: 01/09/2017 FINDINGS: Cardiomegaly with hilar vascular and interstitial congestive changes are stable. Trace bilateral ple ural effusions may be present. There is no alveolar infiltrates, edema, or masses. .. Calcific ath erosclerosis of the aorta is present.. The osseous structures are intact. IMPRESSION: Cardiomegaly with hilar vascular and interstitial congestion unchanged. Trace bilateral pleural effusions.. RPTAT: RR .Ron Beth MD, MD Date Time Electronically viewed and signed by .Ron Beth MD, MD on 01/10/2017 10:10 .L/
[2017-01-10] MEDS ORDERED: FUROSEMIDE 20 MG INJ IV ONE (11:30)
[2017-01-10] MEDS ORDERED: ALBUTEROL/IPRATROPIUM (NEB) 3 ML AMP HHN STA (12:31)
--- NOTE | 2017-01-10 13:32 | PN ---
Date/Time of Note Date/Time of Note DATE: 01/10/17 TIME: 12:23 Assessment/Plan VTE Prophylaxis VTE Prophylaxis Intervention: SCD's Lines/Catheters IV Catheter Type (from Nrsg): Peripheral IV Assessment/Plan Assessment/Plan 76-year-old female: 1. Respiratory distress, reported history of asthma however patient likely with CHF exacerbation, respiratory distress use with any exertion and movement, she seems to be responding to nebulizer treatments but for short-term, ABG on nonrebreather was satisfactory. 2D echocardiogram results pending Diuresis, switch off of heparin drip to Lovenox subcu, decrease IV fluids to 75 cc an hour. Nebulizer treatment, I will place on Xopenex scheduled q. 8 and every 4 as needed Follow-up chest x-ray in a.m. 2. STEMI, in setting of flulike symptoms and febrile illness, patient status post angiogram with finding of 3 vessel disease and likely aortic valve disease. 2D echocardiogram done and results pending. Appreciate recommendations from cardiothoracic surgery. Currently on heparin drip and medical management for acute DC along with treatment of underlying febrile illness. Given issues with volume status, high risk for volume overload, heparin drip will be discontinued, patient will be switched to treatment dose of Lovenox until further recommendations from cardiology available. Continue aspirin, beta blockers, statin therapy. Per cardiothoracic surgery, Dr. Diana, patient needs to be treated for this acute illness first prior to undergoing surgical revascularization and possibly aortic valve replacement. 3. E. coli UTI, patient presented with febrile illness and generalized weakness. Based on sensitivities, will continue Rocephin for now, Leukocytosis improving, will continue to monitor counts. 4. Diabetes mellitus, according to family patient nondiabetic, unclear who prescribed or when Januvia was prescribed. A1c 6.5. Agree with sliding scale insulin and ADA diet. 5. Hypertension. Continue current cardiac medications, further adjustments as needed. 6. Breast cancer. Resume outpatient medications Prophylaxis: GI prophylaxis with Pepcid, Disposition: Patient to be stabilized medically, treating UTI, medical management of acute DC, appreciate recommendations from cardiothoracic surgery, Patient supposed to move to [place] by 01/11 and get further medical care in [place]. It appears that as of 01/11, she is switching her insurance to [place] Per cardiothoracic surgery she can have her surgical revascularization in [place] in a week at the earliest. Subjective 24 Hr Interval Summary Free Text/Dictation Patient with episode of respiratory distress, requiring nonrebreather this morning, improved with nebulizer treatment ABG pending, on nebulizer treatment. Daughter at bedside updated. Exam/Review of Systems Vital Signs Vitals Vital Signs Date Time Temp Pulse Resp B/P Pulse Ox O2 Delivery O2 Flow Rate FiO2 01/10/17 12:11 98.2 97 18 126/83 95 01/10/17 08:18 Non Rebreather Mask 15.0 100 Intake and Output 01/09/17 01/09/17 01/10/17 15:00 23:00 07:00 Intake Total 830 ml 1072 ml Balance 830 ml 1072 ml Exam Constitutional: alert, obese, oriented Respiratory: diminished breath sounds (At bases bilaterally), wheezing ( Expiratory primarily left upper lobe) Cardiovascular: nl pulses, regular rate and rhythm Gastrointestinal: non-tender, soft Musculoskeletal: nl extremities to inspection Extremities: normal pulses Neurological: MIXER SLAGMAN II-XII intact, nl mental status, nl speech (Easily out of breath), other (Decreased exercise tolerance with dyspnea with movements) Results Result Diagram: 01/10/17 0354 01/10/17 0354 Results 24 hrs Laboratory Tests Test 01/09/17 14:03 01/09/17 14:04 01/09/17 17:08 01/09/17 20:05 Sodium Level 123 L Potassium Level 3.3 L Chloride Level 86 #L Carbon Dioxide Level 26 Anion Gap 14 Blood Urea Nitrogen 16 Creatinine 0.77 Glucose Level 163 Calcium Level 7.2 L Magnesium Level 1.9 Creatine Kinase 2322 #H Creatine Kinase Index 1.4 Creatinine Kinase MB (Mass) 33.10 H Troponin I 4.840 *H Bedside Glucose 147 Activated Partial Thromboplast Time 74.9 *H Test 01/09/17 20:18 01/09/17 21:54 01/10/17 03:54 01/10/17 08:17 Bedside Glucose 126 129 Creatine Kinase 2637 H Creatine Kinase Index 1.0 Creatinine Kinase MB (Mass) 26.80 H Troponin I 3.830 *H White Blood Count 17.8 H Red Blood Count 5.04 Hemoglobin 10.7 L Hematocrit 33.2 L Mean Corpuscular Volume 65.9 L Mean Corpuscular Hemoglobin 21.2 L Mean Corpuscular Hemoglobin Concent 32.2 Red Cell Distribution Width 15.7 H Platelet Count 103 L Mean Platelet Volume Neutrophils % 86.6 H Lymphocytes % 5.1 L Monocytes % 7.7 Eosinophils % 0.0 Basophils % 0.1 Nucleated Red Blood Cells % 0.0 Neutrophils # 15.4 H Lymphocytes # 0.9 Monocytes # 1.4 H Eosinophils # 0.0 Basophils # 0.0 Nucleated Red Blood Cells # 0.0 Activated Partial Thromboplast Time 69.8 H Sodium Level 127 L Potassium Level 3.7 Chloride Level 94 L Carbon Dioxide Level 27 Anion Gap 10 Blood Urea Nitrogen 17 Creatinine 0.79 Glucose Level 126 Calcium Level 7.2 L Phosphorus Level 2.2 #L Magnesium Level 2.3 Total Bilirubin 0.5 Direct Bilirubin 0.00 Indirect Bilirubin 0.5 Aspartate Amino Transf (AST/SGOT) 126 H Alanine Aminotransferase (ALT/SGPT) 37 Alkaline Phosphatase 75 Total Protein 6.2 Albumin 2.8 L Globulin 3.40 H Albumin/Globulin Ratio 0.82 Test 01/10/17 11:20 Bedside Glucose 124 Imaging Free Text/Dictation PROCEDURE: XR Chest. CLINICAL INDICATION: Respiratory distress . TECHNIQUE: Single frontal chest x-ray. COMPARISON: 01/09/2017 FINDINGS: Cardiomegaly with hilar vascular and interstitial congestive changes are stable. Trace bilateral pleural effusions may be present. There is no alveolar infiltrates, edema, or masses. .. Calcific atherosclerosis of the aorta is present.. The osseous structures are intact. IMPRESSION: Cardiomegaly with hilar vascular and interstitial congestion unchanged. Trace bilateral pleural effusions.. RPTAT: RR .Ron Beth MD, Date Time Electronically viewed and signed by .Ron Beth MD, MD on 01/10/2017 10:10 .L/ Medications Medications Current Medications Acetaminophen (Tylenol Tab) 650 mg Q4H PRN PO NON-CARDIAC PAIN LEVEL (1-3) Last administered on 01/07/17t 16:06; Admin Dose 650 MG; Start 01/07/17 at 13: 00 Morphine Sulfate (morphine) 2 mg Q2H PRN IV FOR NON CARDIAC PAIN (4-10) Last administered on 01/09/17 01:47; Admin Dose 2 MG; Start 01/07/17 at 13:00 Al Hydrox/Mg Hydrox/Simethicone (Mag-Al Plus) 30 ml Q4H PRN PO GASTROINTESTINAL UPSET; Start 01/07/17 at 13:00 Ondansetron HCl (Zofran Inj) 4 mg Q4H PRN IV NAUSEA AND/OR VOMITING Last administered on 01/07/17 18:03; Admin Dose 4 MG; Start 01/07/17 at 13:00 Metoprolol Succinate (Toprol Xl) 50 mg DAILY PO Last administered on 09:40; Admin Dose 50 MG; Start 01/07/17 at 16:00 Losartan Potassium (Cozaar) 25 mg BID PO Last administered on 01/10/17 09:40 ; Admin Dose 25 MG; Start 01/07/17 at 16:00 Atorvastatin Calcium (Lipitor) 40 mg QHS PO Last administered on 01/09/17 20: 27; Admin Dose 40 MG; Start 01/07/17 at 21:00 Aspirin (Aspirin) 81 mg DAILY PO Last administered on 01/10/17 09:40; Admin Dose 81 MG; Start 01/08/17 at 09:00 Ondansetron HCl (Zofran Inj) 4 mg Q6H PRN IV NAUSEA AND/OR VOMITING; Start at 15:00 Acetaminophen (Tylenol Tab) 650 mg Q6H PRN PO PAIN LEVEL 1-3 OR FEVER Last administered on 01/08/17 15:54; Admin Dose 650 MG; Start 01/07/17 at 15:00 Acetaminophen/ Hydrocodone Bitart ([place] (5/325)) 1 tab Q6H PRN PO MODERATE PAIN LEVEL 4-6; Start 01/07/17 at 15:00 Morphine Sulfate (morphine) 2 mg Q4H PRN IV SEVERE PAIN LEVEL 7-10; Start at 15:00 Docusate Sodium (Colace) 100 mg Q12H PRN PO CONSTIPATION; Start 01/07/17 at 15 :00 Magnesium Hydroxide (Milk Of Mag) 30 ml DAILY PRN PO CONSTIPATION; Start 01/07 at 15:00 Sodium Biphosphate/ Sodium Phosphate (Fleet Enema) 133 ml DAILY PRN [place] CONSTIPATION; Start 01/07/17 at 15:00 Lorazepam (Ativan) 0.5 mg Q6H PRN IV ANXIETY; Start 01/07/17 at 15:00 Hydralazine HCl (Apresoline) 10 mg Q6H PRN IV ELEVATED BLOOD PRESSURE; Start 01/07/17 at 15:00 Nitroglycerin (Nitroglycerin (Sl Tab) 0.4 Mg) 1 tab Q5M PRN SL ANGINA; Start 01/07/17 at 15:00 Diagnostic Test (Pha) (Accu-Chek) 1 ea 02 XX Last administered on 01/09/17 02 :09; Admin Dose 1 EA; Start 01/08/17 at 02:00 Diagnostic Test (Pha) (Accu-Chek) 1 ea 02 XX Last administered on 01/09/17 02 :09; Admin Dose 1 EA; Start 01/08/17 at 02:00 Miscellaneous Information 1 ea NOTE XX ; Start 01/07/17 at 17:00 Glucose (Glutose) 15 gm Q15M PRN PO DECREASED GLUCOSE; Start 01/07/17 at 17:00 Glucose (Glutose) 22.5 gm Q15M PRN PO DECREASED GLUCOSE; Start 01/07/17 at 17: 00 Dextrose (D50w Syringe) 25 ml Q15M PRN IV DECREASED GLUCOSE; Start 01/07/17 at 17:00 Dextrose (D50w Syringe) 50 ml Q15M PRN IV DECREASED GLUCOSE; Start 01/07/17 at 17:00 Glucagon (Glucagen) 1 mg Q15M PRN IM DECREASED GLUCOSE; Start 01/07/17 at 17: 00 Glucose 15 gm 15 gm Q15M PRN BUCCAL DECREASED GLUCOSE; Start 01/07/17 at 17:00 Ceftriaxone Sodium 50 ml @ 100 mls/hr Q24H IVPB Last administered on 16:18; Admin Dose 100 MLS/HR; Start 01/08/17 at 17:00 Potassium Chloride/Sodium Chloride (NS-KCl 20 Meq) 1,000 ml @ 100 mls/hr Q10H IV Last administered on 01/10/17 03:20; Admin Dose 100 MLS/HR; Start at 16:00 THANG BELLE Jan 10, 2017 13:10
--- NOTE | 2017-01-10 15:03 | RADRPT ---
Echocardiogram Report Patient Name: NIC HERNANDEZ Gender: Female Date: 1940 Study Date: 08-Jan-2017 Tool Procurement Coordinator: [place] Location: I Ref. Physician: CHLOÉ RICHARDSON Quality: Good Procedures: Transthoracic echocardiogram with 2D, M-Mode, and Doppler examination, poor subcostals. Indications: STEMI. 2D/M Mode Doppler Measurement Value Normal Ranges Measurement Value Normal Ranges AoR Diam MM 3.0 cm AV Peak Jarvis 1.6 m/sec LVIDd 2D 4.4 3.5 - 5.6 cm AV Peak PG 9.7 mmHg LVIDs 2D 3.0 2.1 - 4.1 cm LVOT Peak Jarvis 0.7 m/sec LVPWd 2D 1.1 0.6 - 1.1 cm LVOT Peak PG 1.9 mmHg IVSd 2D 1.2 0.6 - 1.1 cm MV E Peak Jarvis 1.1 m/sec EDV 2D 88.9 cm3 MV A Peak Jarvis 1.5 m/sec ESV 2D 28.0 cm3 MV E/A 0.8 LA Dimen 2D 3.6 2.3 - 4.0 cm MV Decel Time 125 msec MV Decel [place] 9 MV E/A 0.8 TR Peak Jarvis 2.5 m/sec TR Peak PG 25.7 mmHg PV Peak Jarvis 1.2 m/sec PV Peak PG 7.0 mmHg RVSP 28.7 mmHg Findings Left Ventricle: Normal left ventricular cavity size. Mild hypertrophy of the basal septum. Ejection fraction is visually estimated at 60 %. Tissue Doppler/Mitral Doppler indices are consistent with impaired relaxation (Stage I diastolic dysfunction). E/E`=17. These segments of the LV are akinetic apical lateral segment, Apical inferior segment, apical septum segment and apical anterior segment. Right Ventricle: Normal right ventricular size. Normal right ventricular systolic function. Left Atrium: The left atrium is normal in size. Right Atrium: The right atrium is normal in size. Atrial Septum: Not well visualized. Mitral Valve: Normal appearance of the mitral valve. Mild mitral valve regurgitation. Aortic Valve: Normal appearance of the aortic valve. No significant aortic stenosis or insufficiency. Tricuspid Valve: Normal appearance and function of the tricuspid valve with trace physiologic regurgitation. Normal right ventricular systolic pressure. Estimated peak PA systolic pressure 29 mmHg. Pulmonic Valve: Normal pulmonic valve appearance. No evidence of pulmonic regurgitation. Pericardium: Normal pericardium with no significant pericardial effusion. Aorta: Normal aortic root. IVC: The IVC is not well visualized. Pulmonary Artery: Normal pulmonary artery size. Conclusions Normal left ventricular cavity size. Mild hypertrophy of the basal septum. Ejection fraction is visually estimated at 60 %. Tissue Doppler/Mitral Doppler indices are consistent with impaired relaxation (Stage I diastolic dysfunction). E/E`=17. These segments of the LV are akinetic apical lateral segment, Apical inferior segment, apical septum segment. and apical anterior segment. Normal right ventricular size. Normal right ventricular systolic function. Normal appearance and function of the tricuspid valve with trace physiologic regurgitation. Normal right ventricular systolic pressure. Estimated peak PA systolic pressure 29 mmHg. Normal pericardium with no significant pericardial effusion. The IVC is not well visualized. No Vegetation, masses, or thrombi seen. Electronically Signed By: Omar Zamudio 10-Jan-2017 15:02:46 -5200 Patient Name: NIC HERNANDEZ Study Date: 08-Jan-2017 [id number]
--- NOTE | 2017-01-10 15:03 | RADRPT ---
Echocardiogram Report Patient Name: NIC HERNANDEZ Gender: Female Date: 1940 Study Date: 08-Jan-2017 Route Jumper: [place] Location: I Ref. Physician: CHLOÉ RICHARDSON Quality: Good Procedures: Transthoracic echocardiogram with 2D, M-Mode, and Doppler examination, poor subcostals. Indications: STEMI. 2D/M Mode Doppler Measurement Value Normal Ranges Measurement Value Normal Ranges AoR Diam MM 3.0 cm AV Peak Jarvis 1.6 m/sec LVIDd 2D 4.4 3.5 - 5.6 cm AV Peak PG 9.7 mmHg LVIDs 2D 3.0 2.1 - 4.1 cm LVOT Peak Jarvis 0.7 m/sec LVPWd 2D 1.1 0.6 - 1.1 cm LVOT Peak PG 1.9 mmHg IVSd 2D 1.2 0.6 - 1.1 cm MV E Peak Jarvis 1.1 m/sec EDV 2D 88.9 cm3 MV A Peak Jarvis 1.5 m/sec ESV 2D 28.0 cm3 MV E/A 0.8 LA Dimen 2D 3.6 2.3 - 4.0 cm MV Decel Time 125 msec MV Decel [place] 9 MV E/A 0.8 TR Peak Jarvis 2.5 m/sec TR Peak PG 25.7 mmHg PV Peak Jarvis 1.2 m/sec PV Peak PG 7.0 mmHg RVSP 28.7 mmHg Findings Left Ventricle: Normal left ventricular cavity size. Mild hypertrophy of the basal septum. Ejection fraction is visually estimated at 60 %. Tissue Doppler/Mitral Doppler indices are consistent with impaired relaxation (Stage I diastolic dysfunction). E/E`=17. These segments of the LV are akinetic apical lateral segment, Apical inferior segment, apical septum segment and apical anterior segment. Right Ventricle: Normal right ventricular size. Normal right ventricular systolic function. Left Atrium: The left atrium is normal in size. Right Atrium: The right atrium is normal in size. Atrial Septum: Not well visualized. Mitral Valve: Normal appearance of the mitral valve. Mild mitral valve regurgitation. Aortic Valve: Normal appearance of the aortic valve. No significant aortic stenosis or insufficiency. Tricuspid Valve: Normal appearance and function of the tricuspid valve with trace physiologic regurgitation. Normal right ventricular systolic pressure. Estimated peak PA systolic pressure 29 mmHg. Pulmonic Valve: Normal pulmonic valve appearance. No evidence of pulmonic regurgitation. Pericardium: Normal pericardium with no significant pericardial effusion. Aorta: Normal aortic root. IVC: The IVC is not well visualized. Pulmonary Artery: Normal pulmonary artery size. Conclusions Normal left ventricular cavity size. Mild hypertrophy of the basal septum. Ejection fraction is visually estimated at 60 %. Tissue Doppler/Mitral Doppler indices are consistent with impaired relaxation (Stage I diastolic dysfunction). E/E`=17. These segments of the LV are akinetic apical lateral segment, Apical inferior segment, apical septum segment. and apical anterior segment. Normal right ventricular size. Normal right ventricular systolic function. Normal appearance and function of the tricuspid valve with trace physiologic regurgitation. Normal right ventricular systolic pressure. Estimated peak PA systolic pressure 29 mmHg. Normal pericardium with no significant pericardial effusion. The IVC is not well visualized. No Vegetation, masses, or thrombi seen. Electronically Signed By: Omar Zamudio 10-Jan-2017 15:02:46 -3200 Patient Name: NIC HERNANDEZ Study Date: 08-Jan-2017 [id number]
--- NOTE | 2017-01-10 15:03 | RADRPT ---
Echocardiogram Report Patient Name: NIC HERNANDEZ Gender: Female Date: 1940 Study Date: 08-Jan-2017 Stretching Machine Tender Frame: [place] Location: I Ref. Physician: CHLOÉ RICHARDSON Quality: Good Procedures: Transthoracic echocardiogram with 2D, M-Mode, and Doppler examination, poor subcostals. Indications: STEMI. 2D/M Mode Doppler Measurement Value Normal Ranges Measurement Value Normal Ranges AoR Diam MM 3.0 cm AV Peak Jarvis 1.6 m/sec LVIDd 2D 4.4 3.5 - 5.6 cm AV Peak PG 9.7 mmHg LVIDs 2D 3.0 2.1 - 4.1 cm LVOT Peak Jarvis 0.7 m/sec LVPWd 2D 1.1 0.6 - 1.1 cm LVOT Peak PG 1.9 mmHg IVSd 2D 1.2 0.6 - 1.1 cm MV E Peak Jarvis 1.1 m/sec EDV 2D 88.9 cm3 MV A Peak Jarvis 1.5 m/sec ESV 2D 28.0 cm3 MV E/A 0.8 LA Dimen 2D 3.6 2.3 - 4.0 cm MV Decel Time 125 msec MV Decel [place] 9 MV E/A 0.8 TR Peak Jarvis 2.5 m/sec TR Peak PG 25.7 mmHg PV Peak Jarvis 1.2 m/sec PV Peak PG 7.0 mmHg RVSP 28.7 mmHg Findings Left Ventricle: Normal left ventricular cavity size. Mild hypertrophy of the basal septum. Ejection fraction is visually estimated at 60 %. Tissue Doppler/Mitral Doppler indices are consistent with impaired relaxation (Stage I diastolic dysfunction). E/E`=17. These segments of the LV are akinetic apical lateral segment, Apical inferior segment, apical septum segment and apical anterior segment. Right Ventricle: Normal right ventricular size. Normal right ventricular systolic function. Left Atrium: The left atrium is normal in size. Right Atrium: The right atrium is normal in size. Atrial Septum: Not well visualized. Mitral Valve: Normal appearance of the mitral valve. Mild mitral valve regurgitation. Aortic Valve: Normal appearance of the aortic valve. No significant aortic stenosis or insufficiency. Tricuspid Valve: Normal appearance and function of the tricuspid valve with trace physiologic regurgitation. Normal right ventricular systolic pressure. Estimated peak PA systolic pressure 29 mmHg. Pulmonic Valve: Normal pulmonic valve appearance. No evidence of pulmonic regurgitation. Pericardium: Normal pericardium with no significant pericardial effusion. Aorta: Normal aortic root. IVC: The IVC is not well visualized. Pulmonary Artery: Normal pulmonary artery size. Conclusions Normal left ventricular cavity size. Mild hypertrophy of the basal septum. Ejection fraction is visually estimated at 60 %. Tissue Doppler/Mitral Doppler indices are consistent with impaired relaxation (Stage I diastolic dysfunction). E/E`=17. These segments of the LV are akinetic apical lateral segment, Apical inferior segment, apical septum segment. and apical anterior segment. Normal right ventricular size. Normal right ventricular systolic function. Normal appearance and function of the tricuspid valve with trace physiologic regurgitation. Normal right ventricular systolic pressure. Estimated peak PA systolic pressure 29 mmHg. Normal pericardium with no significant pericardial effusion. The IVC is not well visualized. No Vegetation, masses, or thrombi seen. Electronically Signed By: Omar Zamudio 10-Jan-2017 15:02:46 -0200 Patient Name: NIC HERNANDEZ Study Date: 08-Jan-2017 [id number]
[2017-01-10] MEDS: CEFTRIAXONE 1 GM/50 ML (PMX) 50 ML IVPB SCH (17:09)
[2017-01-10] MEDS ORDERED: FUROSEMIDE 40 MG INJ IV ONE (17:30)
[2017-01-10] MEDS: ALBUTEROL/IPRATROPIUM (NEB) 3 ML AMP HHN SCH (20:58)
[2017-01-10] MEDS: ATORVASTATIN 40 MG TAB PO SCH (21:44)
[2017-01-10] MEDS: ENOXAPARIN 80 MG/0.8 ML SYG SC SCH (21:46)
[2017-01-11] VITALS (11 sets, daily range): BP systolic 121–142; BP diastolic 60–83; PULSE 84–90; RESP 17–22
[2017-01-11] MEDS: ALBUTEROL/IPRATROPIUM (NEB) 3 ML AMP HHN SCH ×6 (00:57→21:20)
[2017-01-11] MEDS ORDERED: FUROSEMIDE 20 MG INJ IV SCH (06:00)
[2017-01-11] MEDS: INSULIN ASPART [NOVOLOG] 3 ML PEN SC SCH ×4 (08:00→21:00)
[2017-01-11] MEDS: ASPIRIN 81 MG TAB PO SCH (08:40)
[2017-01-11] MEDS: LOSARTAN 25 MG TAB PO SCH ×2 (08:41→21:07)
[2017-01-11] MEDS: METOPROLOL (XL) 50 MG TAB PO SCH (08:42)
[2017-01-11] MEDS: ENOXAPARIN 80 MG/0.8 ML SYG SC SCH ×2 (08:52→21:08)
--- NOTE | 2017-01-11 08:53 | RADRPT ---
PROCEDURE: XR Chest. CLINICAL INDICATION: Shortness of breath. TECHNIQUE: Single frontal view. COMPARISON: 01/10/2017 FINDINGS: Mild pulmonary edema is unchanged. The heart is enlarged. There is calcification in the aorta consistent with atherosclerosis. There is no pleural effusion. There is no pneumothorax. IMPRESSION: 1. Mild pulmonary edema, unchanged. 2. Cardiomegaly and atherosclerosis. 3. No other change from the 01/10/2017 chest radiograph. RPTAT: QQ .Sai Sharma MD, Date Time Electronically viewed and signed by .Sai Sharma MD, MD on 01/11/2017 08:53 .R/
[2017-01-11] MEDS: NS + KCL 20 MEQ 1,000 ML IV SCH (12:10)
[2017-01-11] MEDS ORDERED: POTASSIUM PHOSPHATE 30 MM in SOD CHLORIDE 0.9% 250 ML IVPB ONE (14:30)
--- NOTE | 2017-01-11 15:10 | PN ---
Date/Time of Note Date/Time of Note DATE: 01/11/17 TIME: 14:33 Assessment/Plan VTE Prophylaxis VTE Prophylaxis Intervention: LMWH (treatment dose ) Lines/Catheters IV Catheter Type (from Nrsg): Peripheral IV Assessment/Plan Assessment/Plan 76-year-old female: 1. Acute on chronic diastolic CHF, improved respiratory status with Lasix and nebs prn. 2D echocardiogram results with EF 55 %. Continue diuresis, on Lovenox subcu, d/c IVF. Nebulizer treatment, I will place on Xopenex scheduled q. 8 and every 4 as needed Chest x-ray this a.m. stable. 2. STEMI, in setting of flulike symptoms and febrile illness, patient status post angiogram with finding of 3 vessel disease and likely aortic valve disease. 2D echocardiogram with normal Aortic Valve and EF of 55% Appreciate recommendations from cardiothoracic surgery. Currently on Lovenox and medical management for acute ME along with treatment of underlying febrile illness. Continue aspirin, beta blockers, statin therapy. Per cardiothoracic surgery, Dr. Diana, patient needs to be treated for this acute illness first prior to undergoing surgical revascularization. 3. E. coli UTI, patient presented with febrile illness and generalized weakness. Leukocytosis improving, will continue monitoring, based on sensitivities, will continue Rocephin for now with plan to change to po abx by discharge. 4. Diabetes mellitus, according to family patient nondiabetic, unclear who prescribed or when Januvia was prescribed. A1c 6.5. Agree with sliding scale insulin and ADA diet. 5. Hypertension. Continue current cardiac medications, further adjustments as needed. 6. Breast cancer. Resume outpatient medications Prophylaxis: GI prophylaxis with Pepcid, Disposition: Patient to be stabilized medically, treating UTI, medical management of acute ME, appreciate recommendations from cardiothoracic surgery, Patient supposed to move to [place] by 01/11 and get further medical care in [place]. It appears that as of 01/11, she is switching her insurance to [place] Per cardiothoracic surgery she can have her surgical revascularization in [place] in a week at the earliest. Hopefully d/c plan within 48 hrs Subjective 24 Hr Interval Summary Free Text/Dictation Patient feels better, no complaints except for occasional left flank pain. Afebrile and WBC trending down Better respiratory status with diuresis. Exam/Review of Systems Vital Signs Vitals Vital Signs Date Time Temp Pulse Resp B/P Pulse Ox O2 Delivery O2 Flow Rate FiO2 01/11/17 13:17 83 20 97 Nasal Cannula 3.0 01/11/17 11:47 98.3 121/60 01/10/17 12:43 100 Intake and Output 01/10/17 01/10/17 01/11/17 15:00 23:00 07:00 Intake Total 1800 ml 600 ml 1240 ml Balance 1800 ml 600 ml 1240 ml Exam Constitutional: alert, obese, oriented, well developed Respiratory: diminished breath sounds (bases ), other (much improved air movement ) Cardiovascular: nl pulses, regular rate and rhythm Gastrointestinal: non-tender, soft Musculoskeletal: nl extremities to inspection, nl gait and stance Extremities: normal pulses, other (no edema, clubbing or cyanosis ) Neurological: SPINNER FRAME II-XII intact, nl mental status, nl speech, nl strength Results Result Diagram: 01/11/17 1112 01/11/17 1112 Results 24 hrs Laboratory Tests Test 01/10/17 17:07 01/10/17 20:31 01/11/17 08:38 01/11/17 11:12 Bedside Glucose 116 159 118 White Blood Count 11.4 #H Red Blood Count 5.11 Hemoglobin 10.9 L Hematocrit 34.2 L Mean Corpuscular Volume 66.9 L Mean Corpuscular Hemoglobin 21.3 L Mean Corpuscular Hemoglobin Concent 31.9 L Red Cell Distribution Width 15.9 H Platelet Count 155 # Mean Platelet Volume 11.3 H Neutrophils % 76.3 Lymphocytes % 8.6 L Monocytes % 13.5 H Eosinophils % 0.3 Basophils % 0.2 Nucleated Red Blood Cells % 0.0 Neutrophils # 8.7 H Lymphocytes # 1.0 Monocytes # 1.5 H Eosinophils # 0.0 Basophils # 0.0 Nucleated Red Blood Cells # 0.0 Sodium Level 134 L Potassium Level 3.2 L Chloride Level 95 L Carbon Dioxide Level 31 Anion Gap 11 Blood Urea Nitrogen 15 Creatinine 0.83 Glucose Level 170 Calcium Level 7.1 L Phosphorus Level 1.8 L Magnesium Level 2.1 Total Bilirubin 0.6 Direct Bilirubin 0.00 Indirect Bilirubin 0.6 Aspartate Amino Transf (AST/SGOT) 84 H Alanine Aminotransferase (ALT/SGPT) 37 Alkaline Phosphatase 87 Total Protein 6.1 Albumin 3.0 L Globulin 3.10 Albumin/Globulin Ratio 0.96 Test 11/1/17 12:07 Bedside Glucose 160 Imaging Free Text/Dictation PROCEDURE: XR Chest. CLINICAL INDICATION: Shortness of breath. TECHNIQUE: Single frontal view. COMPARISON: 01/10/2017 FINDINGS: Mild pulmonary edema is unchanged. The heart is enlarged. There is calcification in the aorta consistent with atherosclerosis. There is no pleural effusion. There is no pneumothorax. IMPRESSION: 1. Mild pulmonary edema, unchanged. 2. Cardiomegaly and atherosclerosis. 3. No other change from the 01/10/2017 chest radiograph. RPTAT: QQ .Sai Sharma MD, MD Date Time Electronically viewed and signed by .Sai Sharma MD, MD on 01/11/2017 08:53 Medications Medications Current Medications Acetaminophen (Tylenol Tab) 650 mg Q4H PRN PO NON-CARDIAC PAIN LEVEL (1-3) Last administered on 01/07/17 16:06; Admin Dose 650 MG; Start 01/07/17 at 13: 00 Morphine Sulfate (morphine) 2 mg Q2H PRN IV FOR NON CARDIAC PAIN (4-10) Last administered on 01/09/17 01:47; Admin Dose 2 MG; Start 01/07/17 at 13:00 Al Hydrox/Mg Hydrox/Simethicone (Mag-Al Plus) 30 ml Q4H PRN PO GASTROINTESTINAL UPSET; Start 01/07/17 at 13:00 Ondansetron HCl (Zofran Inj) 4 mg Q4H PRN IV NAUSEA AND/OR VOMITING Last administered on 01/07/17 18:03; Admin Dose 4 MG; Start 01/07/17 at 13:00 Metoprolol Succinate (Toprol Xl) 50 mg DAILY PO Last administered on 01/11/17 08:42; Admin Dose 50 MG; Start 01/07/17 at 16:00 Losartan Potassium (Cozaar) 25 mg BID PO Last administered on 01/11/17 08:41; Admin Dose 25 MG; Start 01/07/17 at 16:00 Atorvastatin Calcium (Lipitor) 40 mg QHS PO Last administered on 01/10/17 21: 44; Admin Dose 40 MG; Start 01/07/17 at 21:00 Aspirin (Aspirin) 81 mg DAILY PO Last administered on 01/11/17 08:40; Admin Dose 81 MG; Start 01/08/17 at 09:00 Ondansetron HCl (Zofran Inj) 4 mg Q6H PRN IV NAUSEA AND/OR VOMITING; Start at 15:00 Acetaminophen (Tylenol Tab) 650 mg Q6H PRN PO PAIN LEVEL 1-3 OR FEVER Last administered on 01/08/17 15:54; Admin Dose 650 MG; Start 01/07/17 at 15:00 Acetaminophen/ Hydrocodone Bitart ([place] (5/325)) 1 tab Q6H PRN PO MODERATE PAIN LEVEL 4-6; Start 01/07/17 at 15:00 Morphine Sulfate (morphine) 2 mg Q4H PRN IV SEVERE PAIN LEVEL 7-10; Start at 15:00 Docusate Sodium (Colace) 100 mg Q12H PRN PO CONSTIPATION; Start 01/07/17 at 15 :00 Magnesium Hydroxide (Milk Of Mag) 30 ml DAILY PRN PO CONSTIPATION; Start 01/07 at 15:00 Sodium Biphosphate/ Sodium Phosphate (Fleet Enema) 133 ml DAILY PRN NM CONSTIPATION; Start 01/07/17 at 15:00 Lorazepam (Ativan) 0.5 mg Q6H PRN IV ANXIETY; Start 01/07/17 at 15:00 Hydralazine HCl (Apresoline) 10 mg Q6H PRN IV ELEVATED BLOOD PRESSURE; Start 01/07/17 at 15:00 Nitroglycerin (Nitroglycerin (Sl Tab) 0.4 Mg) 1 tab Q5M PRN SL ANGINA; Start 01/07/17 at 15:00 Diagnostic Test (Pha) (Accu-Chek) 1 ea 02 XX Last administered on 01/09/17 02 :09; Admin Dose 1 EA; Start 01/08/17 at 02:00 Miscellaneous Information 1 ea NOTE XX ; Start 01/07/17 at 17:00 Glucose (Glutose) 15 gm Q15M PRN PO DECREASED GLUCOSE; Start 01/07/17 at 17:00 Glucose (Glutose) 22.5 gm Q15M PRN PO DECREASED GLUCOSE; Start 01/07/17 at 17: 00 Dextrose (D50w Syringe) 25 ml Q15M PRN IV DECREASED GLUCOSE; Start 01/07/17 at 17:00 Dextrose (D50w Syringe) 50 ml Q15M PRN IV DECREASED GLUCOSE; Start 01/07/17 at 17:00 Glucagon (Glucagen) 1 mg Q15M PRN IM DECREASED GLUCOSE; Start 01/07/17 at 17: 00 Glucose 15 gm 15 gm Q15M PRN BUCCAL DECREASED GLUCOSE; Start 01/07/17 at 17:00 Ceftriaxone Sodium (Rocephin) 50 ml @ 100 mls/hr Q24H IVPB Last administered on 01/10/17 17:09; Admin Dose 100 MLS/HR; Start 01/08/17 at 17:00 Enoxaparin Sodium 75 mg 75 mg Q12 SC Last administered on 01/11/17 08:52; Admin Dose 75 MG; Start 01/10/17 at 21:00 Potassium Phosphate/Sodium Chloride (K Phos (Mm)/NS) 260 ml @ 65 mls/hr ONCE ONCE IVPB ; Start 01/11/17 at 14:30; Stop 01/11/17 at 18:29 Procedures Procedures Echocardiogram Report Patient Name: NIC HERNANDEZ Gender: Female Date: 1940 Study Date: 08-Jan-2017 Product Safety Officer: [place] Location: Ref. Physician: CHLOÉ RICHARDSON Quality: Good Procedures: Transthoracic echocardiogram with 2D, M-Mode, and Doppler examination, poor subcostals. Indications: STEMI. 2D/M Mode Doppler Measurement Value Normal Ranges Measurement Value Normal Ranges AoR Diam MM 3.0 cm AV Peak Jarvis 1.6 m/sec LVIDd 2D 4.4 3.5 - 5.6 cm AV Peak PG 9.7 mmHg LVIDs 2D 3.0 2.1 - 4.1 cm LVOT Peak Jarvis 0.7 m/sec LVPWd 2D 1.1 0.6 - 1.1 cm LVOT Peak PG 1.9 mmHg IVSd 2D 1.2 0.6 - 1.1 cm MV E Peak Jarvis 1.1 m/sec EDV 2D 88.9 cm3 MV A Peak Jarvis 1.5 m/sec ESV 2D 28.0 cm3 MV E/A 0.8 LA Dimen 2D 3.6 2.3 - 4.0 cm MV Decel Time 125 msec MV Decel [place] 9 MV E/A 0.8 TR Peak Jarvis 2.5 m/sec TR Peak PG 25.7 mmHg PV Peak Jarvis 1.2 m/sec PV Peak PG 7.0 mmHg RVSP 28.7 mmHg Findings Left Ventricle: Normal left ventricular cavity size. Mild hypertrophy of the basal septum. Ejection fraction is visually estimated at 60 %. Tissue Doppler/Mitral Doppler indices are consistent with impaired relaxation (Stage I diastolic dysfunction). E/E`=17. These segments of the LV are akinetic apical lateral segment, Apical inferior segment, apical septum segment and apical anterior segment. Right Ventricle: Normal right ventricular size. Normal right ventricular systolic function. Left Atrium: The left atrium is normal in size. Right Atrium: The right atrium is normal in size. Atrial Septum: Not well visualized. Mitral Valve: Normal appearance of the mitral valve. Mild mitral valve regurgitation. Aortic Valve: Normal appearance of the aortic valve. No significant aortic stenosis or insufficiency. Tricuspid Valve: Normal appearance and function of the tricuspid valve with trace physiologic regurgitation. Normal right ventricular systolic pressure. Estimated peak PA systolic pressure 29 mmHg. Pulmonic Valve: Normal pulmonic valve appearance. No evidence of pulmonic regurgitation. Pericardium: Normal pericardium with no significant pericardial effusion. Aorta: Normal aortic root. IVC: The IVC is not well visualized. Pulmonary Artery: Normal pulmonary artery size. Conclusions Normal left ventricular cavity size. Mild hypertrophy of the basal septum. Ejection fraction is visually estimated at 60 %. Tissue Doppler/Mitral Doppler indices are consistent with impaired relaxation (Stage I diastolic dysfunction). E/E`=17. These segments of the LV are akinetic apical lateral segment, Apical inferior segment, apical septum segment. and apical anterior segment. Normal right ventricular size. Normal right ventricular systolic function. Normal appearance and function of the tricuspid valve with trace physiologic regurgitation. Normal right ventricular systolic pressure. Estimated peak PA systolic pressure 29 mmHg. Normal pericardium with no significant pericardial effusion. The IVC is not well visualized. No Vegetation, masses, or thrombi seen. Electronically Signed By: Omar Zamudio 10-Jan-2017 15:02:46 -0700 Patient Name: NIC HERNANDEZ Study Date: 08-Jan-2017 THANG BELLE Jan 11, 2017 14:51
[2017-01-11] MEDS: CEFTRIAXONE 1 GM/50 ML (PMX) 50 ML IVPB SCH (17:25)
[2017-01-11] MEDS: FUROSEMIDE 40 MG INJ IV SCH (17:29)
[2017-01-11] MEDS: ATORVASTATIN 40 MG TAB PO SCH (21:07)
[2017-01-11] MEDS: ACCU-CHEK XX SCH (21:08)
[2017-01-12] VITALS (12 sets, daily range): BP systolic 110–141; BP diastolic 69–81; PULSE 77–110; RESP 15–19
[2017-01-12] MEDS: ALBUTEROL/IPRATROPIUM (NEB) 3 ML AMP HHN SCH ×6 (00:49→21:20)
[2017-01-12] MEDS: FUROSEMIDE 40 MG INJ IV SCH ×2 (05:36→17:41)
[2017-01-12] MEDS: INSULIN ASPART [NOVOLOG] 3 ML PEN SC SCH ×4 (08:00→20:33)
[2017-01-12] MEDS: ENOXAPARIN 80 MG/0.8 ML SYG SC SCH (09:15)
[2017-01-12] MEDS: METOPROLOL (XL) 50 MG TAB PO SCH (09:17)
[2017-01-12] MEDS: LOSARTAN 25 MG TAB PO SCH ×2 (09:17→20:23)
[2017-01-12] MEDS: ASPIRIN 81 MG TAB PO SCH (09:18)
[2017-01-12] MEDS ORDERED: POTASSIUM CHLORIDE (SR) 20 MEQ TAB PO STA (10:23)
[2017-01-12] MEDS ORDERED: MAGNESIUM SULFATE 2 GM/50 ML 50 ML IVPB SCH (10:30)
[2017-01-12] MEDS: ENOXAPARIN 40 MG/0.4 ML SYG SC SCH (11:00)
[2017-01-12] MEDS: CIPROFLOXACIN 500 MG TAB PO SCH ×2 (12:01→20:22)
--- NOTE | 2017-01-12 16:20 | PN ---
Date/Time of Note Date/Time of Note DATE: 01/12/17 TIME: 15:57 Assessment/Plan VTE Prophylaxis VTE Prophylaxis Intervention: SCD's Lines/Catheters IV Catheter Type (from Nrsg): [place] Assessment/Plan Assessment/Plan 76-year-old female: 1. Acute on chronic diastolic CHF, improved respiratory status with Lasix and nebs prn. 2D echocardiogram results with EF 55 %. Continue diuresis, Lasix dose decreased, Lovenox changed to prophylactic dosing. Nebulizer treatment, Xopenex scheduled q. 8 and every 4 as needed. 2. STEMI, in setting of flu-like symptoms and febrile illness, patient status post angiogram with finding of 3 vessel disease and likely aortic valve disease. 2D echocardiogram with normal Aortic Valve and EF of 55% Appreciate recommendations from cardiothoracic surgery. Currently medical management for acute ID along with treatment of underlying febrile illness. Continue aspirin, beta blockers, statin therapy. Per cardiothoracic surgery, Dr. Diana, patient needs to be treated for this acute illness first prior to undergoing surgical revascularization. 3. E. coli UTI, patient presented with febrile illness and generalized weakness. WBC back to normal today. Antibiotics adjusted to ciprofloxacin p.o. Repeat labs in a.m. 4. Diabetes mellitus, according to family patient nondiabetic, unclear who prescribed or when Januvia was prescribed. A1c 6.5. Agree with sliding scale insulin and ADA diet. 5. Hypertension. Continue current cardiac medications, further adjustments as needed. 6. Breast cancer. Resume outpatient medications Prophylaxis: GI prophylaxis with Pepcid, Lovenox changed to DVT prophylaxis dose Disposition: Patient stabilizing medically, treating UTI, medical management of acute ID, appreciate recommendations from cardiothoracic surgery, Patient supposed to move to [place] by 01/11 and get further medical care in [place]. It appears that as of 01/11, she is switching her insurance to [place] Per cardiothoracic surgery she can have her surgical revascularization in [place] in a week at the earliest. Given significant improvement of patient, discharge planning in the next 24-48 hours back to [place]. Ambulance transport will be arranged at the time of discharge. This was discussed with family. They have voiced that they needed 24 hour notification about discharge so that ambulance can be arranged. Case management will be notified tomorrow if patient stable with plan for discharge 24 hours later therefore by Monday morning. Subjective 24 Hr Interval Summary Free Text/Dictation Patient feels better today, respiratory status much improved, she feels more comfortable, no chest pains. Tolerating p.o. I have updated her daughter at the bedside at length, we agree on current plan of care, plan is still to discharge patient home to [place], ambulance transport will be arranged at the time of discharge, I have talked to her IPA, patient likely to be stable for discharge in the next 24-48 hours Exam/Review of Systems Vital Signs Vitals Vital Signs Date Time Temp Pulse Resp B/P Pulse Ox O2 Delivery O2 Flow Rate FiO2 01/12/17 15:46 98.3 75 19 141/71 99 01/12/17 15:19 2.0 01/12/17 13:35 Nasal Cannula 01/10/17 12:43 100 Intake and Output 01/11/17 01/11/17 01/12/17 15:00 23:00 07:00 Intake Total 970 ml 300 ml Balance 970 ml 300 ml Exam Constitutional: alert, oriented, well developed Respiratory: clear to auscultation, normal air movement Cardiovascular: nl pulses, regular rate and rhythm Gastrointestinal: non-tender, soft Musculoskeletal: nl extremities to inspection, other (No edema, clubbing or cyanosis) Extremities: normal pulses Neurological: NURSING STAFFING COORDINATOR II-XII intact, nl mental status, nl speech, other (Much improved strength.) Results Result Diagram: 01/12/17 0650 01/12/17 0650 Results 24 hrs Laboratory Tests Test 01/11/17 17:34 01/11/17 20:17 01/12/17 06:50 01/12/17 07:44 Bedside Glucose 125 125 126 White Blood Count 9.0 # Red Blood Count 5.40 Hemoglobin 11.3 L Hematocrit 36.2 L Mean Corpuscular Volume 67.0 L Mean Corpuscular Hemoglobin 20.9 L Mean Corpuscular Hemoglobin Concent 31.2 L Red Cell Distribution Width 16.0 H Platelet Count 173 Mean Platelet Volume 11.0 H Neutrophils % 69.5 Lymphocytes % 13.4 L Monocytes % 14.7 H Eosinophils % 0.4 Basophils % 0.2 Nucleated Red Blood Cells % 0.0 Neutrophils # 6.3 Lymphocytes # 1.2 Monocytes # 1.3 H Eosinophils # 0.0 Basophils # 0.0 Nucleated Red Blood Cells # 0.0 Sodium Level 137 Potassium Level 3.4 L Chloride Level 97 Carbon Dioxide Level 33 H Anion Gap 10 Blood Urea Nitrogen 13 Creatinine 0.99 Glucose Level 140 Calcium Level 7.4 L Phosphorus Level 3.1 Magnesium Level 1.8 Total Bilirubin 0.7 Direct Bilirubin 0.00 Indirect Bilirubin 0.7 Aspartate Amino Transf (AST/SGOT) 64 H Alanine Aminotransferase (ALT/SGPT) 35 Alkaline Phosphatase 79 Total Protein 6.8 Albumin 3.2 L Globulin 3.60 H Albumin/Globulin Ratio 0.88 Test 01/12/17 12:07 Bedside Glucose 152 Imaging Free Text/Dictation PROCEDURE: XR Chest. CLINICAL INDICATION: Shortness of breath. TECHNIQUE: Single frontal view. COMPARISON: 01/10/2017 FINDINGS: Mild pulmonary edema is unchanged. The heart is enlarged. There is calcification in the aorta consistent with atherosclerosis. There is no pleural effusion. There is no pneumothorax. IMPRESSION: 1. Mild pulmonary edema, unchanged. 2. Cardiomegaly and atherosclerosis. 3. No other change from the 01/10/2017 chest radiograph. RPTAT: QQ .Sai Sharma MD, MD Date Time Electronically viewed and signed by .Sai Sharma MD, MD on 01/11/2017 08:53 Medications Medications Current Medications Acetaminophen (Tylenol Tab) 650 mg Q4H PRN PO NON-CARDIAC PAIN LEVEL (1-3) Last administered on 01/07/17 16:06; Admin Dose 650 MG; Start 01/07/17 at 13: 00 Morphine Sulfate (morphine) 2 mg Q2H PRN IV FOR NON CARDIAC PAIN (4-10) Last administered on 01/09/17 01:47; Admin Dose 2 MG; Start 01/07/17 at 13:00 Al Hydrox/Mg Hydrox/Simethicone (Mag-Al Plus) 30 ml Q4H PRN PO GASTROINTESTINAL UPSET; Start 01/07/17 at 13:00 Metoprolol Succinate (Toprol Xl) 50 mg DAILY PO Last administered on 01/12/17 09:17; Admin Dose 50 MG; Start 01/07/17 at 16:00 Losartan Potassium (Cozaar) 25 mg BID PO Last administered on 01/12/17 09:17; Admin Dose 25 MG; Start 01/07/17 at 16:00 Atorvastatin Calcium (Lipitor) 40 mg QHS PO Last administered on 01/11/17 21: 07; Admin Dose 40 MG; Start 01/07/17 at 21:00 Aspirin (Aspirin) 81 mg DAILY PO Last administered on 01/12/17 09:18; Admin Dose 81 MG; Start 01/08/17 at 09:00 Ondansetron HCl (Zofran Inj) 4 mg Q6H PRN IV NAUSEA AND/OR VOMITING; Start at 15:00 Acetaminophen (Tylenol Tab) 650 mg Q6H PRN PO PAIN LEVEL 1-3 OR FEVER Last administered on 01/08/17 15:54; Admin Dose 650 MG; Start 01/07/17 at 15:00 Acetaminophen/ Hydrocodone Bitart ([place] (5/325)) 1 tab Q6H PRN PO MODERATE PAIN LEVEL 4-6; Start 01/07/17 at 15:00 Morphine Sulfate (morphine) 2 mg Q4H PRN IV SEVERE PAIN LEVEL 7-10; Start at 15:00 Docusate Sodium (Colace) 100 mg Q12H PRN PO CONSTIPATION; Start 01/07/17 at 15 :00 Magnesium Hydroxide (Milk Of Mag) 30 ml DAILY PRN PO CONSTIPATION Last administered on 01/12/17 15:37; Admin Dose 30 ML; Start 01/07/17 at 15:00 Sodium Biphosphate/ Sodium Phosphate (Fleet Enema) 133 ml DAILY PRN NM CONSTIPATION; Start 01/07/17 at 15:00 Lorazepam (Ativan) 0.5 mg Q6H PRN IV ANXIETY; Start 01/07/17 at 15:00 Hydralazine HCl (Apresoline) 10 mg Q6H PRN IV ELEVATED BLOOD PRESSURE; Start 01/07/17 at 15:00 Nitroglycerin (Nitroglycerin (Sl Tab) 0.4 Mg) 1 tab Q5M PRN SL ANGINA; Start 01/07/17 at 15:00 Diagnostic Test (Pha) (Accu-Chek) 1 ea 02 XX Last administered on 01/09/17 02 :09; Admin Dose 1 EA; Start 01/08/17 at 02:00 Miscellaneous Information 1 ea NOTE XX ; Start 01/07/17 at 17:00 Glucose (Glutose) 15 gm Q15M PRN PO DECREASED GLUCOSE; Start 01/07/17 at 17:00 Glucose (Glutose) 22.5 gm Q15M PRN PO DECREASED GLUCOSE; Start 01/07/17 at 17: 00 Dextrose (D50w Syringe) 25 ml Q15M PRN IV DECREASED GLUCOSE; Start 01/07/17 at 17:00 Dextrose (D50w Syringe) 50 ml Q15M PRN IV DECREASED GLUCOSE; Start 01/07/17 at 17:00 Glucagon (Glucagen) 1 mg Q15M PRN IM DECREASED GLUCOSE; Start 01/07/17 at 17: 00 Glucose (Glutose) 15 gm Q15M PRN BUCCAL DECREASED GLUCOSE; Start 01/07/17 at 17:00 Ciprofloxacin (Cipro) 500 mg BID PO Last administered on 01/12/17t 12:01; Admin Dose 500 MG; Start 01/12/17 at 10:30 Enoxaparin Sodium (Lovenox) 40 mg DAILY SC ; Start 01/12/17 at 11:00 THANG BELLE Jan 12, 2017 16:07
--- NOTE | 2017-01-12 16:20 | PN ---
Date/Time of Note Date/Time of Note DATE: 01/12/17 TIME: 15:57 Assessment/Plan VTE Prophylaxis VTE Prophylaxis Intervention: SCD's Lines/Catheters IV Catheter Type (from Nrsg): [place] Assessment/Plan Assessment/Plan 76-year-old female: 1. Acute on chronic diastolic CHF, improved respiratory status with Lasix and nebs prn. 2D echocardiogram results with EF 55 %. Continue diuresis, Lasix dose decreased, Lovenox changed to prophylactic dosing. Nebulizer treatment, Xopenex scheduled q. 8 and every 4 as needed. 2. STEMI, in setting of flu-like symptoms and febrile illness, patient status post angiogram with finding of 3 vessel disease and likely aortic valve disease. 2D echocardiogram with normal Aortic Valve and EF of 55% Appreciate recommendations from cardiothoracic surgery. Currently medical management for acute [place] along with treatment of underlying febrile illness. Continue aspirin, beta blockers, statin therapy. Per cardiothoracic surgery, Dr. Diana, patient needs to be treated for this acute illness first prior to undergoing surgical revascularization. 3. E. coli UTI, patient presented with febrile illness and generalized weakness. WBC back to normal today. Antibiotics adjusted to ciprofloxacin p.o. Repeat labs in a.m. 4. Diabetes mellitus, according to family patient nondiabetic, unclear who prescribed or when Januvia was prescribed. A1c 6.5. Agree with sliding scale insulin and ADA diet. 5. Hypertension. Continue current cardiac medications, further adjustments as needed. 6. Breast cancer. Resume outpatient medications Prophylaxis: GI prophylaxis with Pepcid, Lovenox changed to DVT prophylaxis dose Disposition: Patient stabilizing medically, treating UTI, medical management of acute [place], appreciate recommendations from cardiothoracic surgery, Patient supposed to move to [place] by 01/11 and get further medical care in [place]. It appears that as of 01/11, she is switching her insurance to [place] Per cardiothoracic surgery she can have her surgical revascularization in [place] in a week at the earliest. Given significant improvement of patient, discharge planning in the next 24-48 hours back to [place]. Ambulance transport will be arranged at the time of discharge. This was discussed with family. They have voiced that they needed 24 hour notification about discharge so that ambulance can be arranged. Case management will be notified tomorrow if patient stable with plan for discharge 24 hours later therefore by Monday morning. Subjective 24 Hr Interval Summary Free Text/Dictation Patient feels better today, respiratory status much improved, she feels more comfortable, no chest pains. Tolerating p.o. I have updated her daughter at the bedside at length, we agree on current plan of care, plan is still to discharge patient home to [place], ambulance transport will be arranged at the time of discharge, I have talked to her IPA, patient likely to be stable for discharge in the next 24-48 hours Exam/Review of Systems Vital Signs Vitals Vital Signs Date Time Temp Pulse Resp B/P Pulse Ox O2 Delivery O2 Flow Rate FiO2 01/12/17 15:46 98.3 75 19 141/71 99 01/12/17 15:19 2.0 01/12/17 13:35 Nasal Cannula 01/10/17 12:43 100 Intake and Output 01/11/17 01/11/17 01/12/17 15:00 23:00 07:00 Intake Total 970 ml 300 ml Balance 970 ml 300 ml Exam Constitutional: alert, oriented, well developed Respiratory: clear to auscultation, normal air movement Cardiovascular: nl pulses, regular rate and rhythm Gastrointestinal: non-tender, soft Musculoskeletal: nl extremities to inspection, other (No edema, clubbing or cyanosis) Extremities: normal pulses 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, nl mental status, nl speech, other (Much improved strength.) Results Result Diagram: 01/12/17 0650 01/12/17 0650 Results 24 hrs Laboratory Tests Test 01/11/17 17:34 01/11/17 20:17 01/12/17 06:50 01/12/17 07:44 Bedside Glucose 125 125 126 White Blood Count 9.0 # Red Blood Count 5.40 Hemoglobin 11.3 L Hematocrit 36.2 L Mean Corpuscular Volume 67.0 L Mean Corpuscular Hemoglobin 20.9 L Mean Corpuscular Hemoglobin Concent 31.2 L Red Cell Distribution Width 16.0 H Platelet Count 173 Mean Platelet Volume 11.0 H Neutrophils % 69.5 Lymphocytes % 13.4 L Monocytes % 14.7 H Eosinophils % 0.4 Basophils % 0.2 Nucleated Red Blood Cells % 0.0 Neutrophils # 6.3 Lymphocytes # 1.2 Monocytes # 1.3 H Eosinophils # 0.0 Basophils # 0.0 Nucleated Red Blood Cells # 0.0 Sodium Level 137 Potassium Level 3.4 L Chloride Level 97 Carbon Dioxide Level 33 H Anion Gap 10 Blood Urea Nitrogen 13 Creatinine 0.99 Glucose Level 140 Calcium Level 7.4 L Phosphorus Level 3.1 Magnesium Level 1.8 Total Bilirubin 0.7 Direct Bilirubin 0.00 Indirect Bilirubin 0.7 Aspartate Amino Transf (AST/SGOT) 64 H Alanine Aminotransferase (ALT/SGPT) 35 Alkaline Phosphatase 79 Total Protein 6.8 Albumin 3.2 L Globulin 3.60 H Albumin/Globulin Ratio 0.88 Test 01/12/17 12:07 Bedside Glucose 152 Imaging Free Text/Dictation PROCEDURE: XR Chest. CLINICAL INDICATION: Shortness of breath. TECHNIQUE: Single frontal view. COMPARISON: 01/10/2017 FINDINGS: Mild pulmonary edema is unchanged. The heart is enlarged. There is calcification in the aorta consistent with atherosclerosis. There is no pleural effusion. There is no pneumothorax. IMPRESSION: 1. Mild pulmonary edema, unchanged. 2. Cardiomegaly and atherosclerosis. 3. No other change from the 01/10/2017 chest radiograph. RPTAT: QQ .Sai Sharma MD, MD Date Time Electronically viewed and signed by .Sai Sharma MD, MD on 01/11/2017 08:53 Medications Medications Current Medications Acetaminophen (Tylenol Tab) 650 mg Q4H PRN PO NON-CARDIAC PAIN LEVEL (1-3) Last administered on 01/07/17 16:06; Admin Dose 650 MG; Start 01/07/17 at 13: 00 Morphine Sulfate (morphine) 2 mg Q2H PRN IV FOR NON CARDIAC PAIN (4-10) Last administered on 01/09/17 01:47; Admin Dose 2 MG; Start 01/07/17 at 13:00 Al Hydrox/Mg Hydrox/Simethicone (Mag-Al Plus) 30 ml Q4H PRN PO GASTROINTESTINAL UPSET; Start 01/07/17 at 13:00 Metoprolol Succinate (Toprol Xl) 50 mg DAILY PO Last administered on 01/12/17 09:17; Admin Dose 50 MG; Start 01/07/17 at 16:00 Losartan Potassium (Cozaar) 25 mg BID PO Last administered on 01/12/17 09:17; Admin Dose 25 MG; Start 01/07/17 at 16:00 Atorvastatin Calcium (Lipitor) 40 mg QHS PO Last administered on 01/11/17 21: 07; Admin Dose 40 MG; Start 01/07/17 at 21:00 Aspirin (Aspirin) 81 mg DAILY PO Last administered on 01/12/17 09:18; Admin Dose 81 MG; Start 01/08/17 at 09:00 Ondansetron HCl (Zofran Inj) 4 mg Q6H PRN IV NAUSEA AND/OR VOMITING; Start at 15:00 Acetaminophen (Tylenol Tab) 650 mg Q6H PRN PO PAIN LEVEL 1-3 OR FEVER Last administered on 01/08/17 15:54; Admin Dose 650 MG; Start 01/07/17 at 15:00 Acetaminophen/ Hydrocodone Bitart ([place] (5/325)) 1 tab Q6H PRN PO MODERATE PAIN LEVEL 4-6; Start 01/07/17 at 15:00 Morphine Sulfate (morphine) 2 mg Q4H PRN IV SEVERE PAIN LEVEL 7-10; Start at 15:00 Docusate Sodium (Colace) 100 mg Q12H PRN PO CONSTIPATION; Start 01/07/17 at 15 :00 Magnesium Hydroxide (Milk Of Mag) 30 ml DAILY PRN PO CONSTIPATION Last administered on 01/12/17 15:37; Admin Dose 30 ML; Start 01/07/17 at 15:00 Sodium Biphosphate/ Sodium Phosphate (Fleet Enema) 133 ml DAILY PRN [place] CONSTIPATION; Start 01/07/17 at 15:00 Lorazepam (Ativan) 0.5 mg Q6H PRN IV ANXIETY; Start 01/07/17 at 15:00 Hydralazine HCl (Apresoline) 10 mg Q6H PRN IV ELEVATED BLOOD PRESSURE; Start 01/07/17 at 15:00 Nitroglycerin (Nitroglycerin (Sl Tab) 0.4 Mg) 1 tab Q5M PRN SL ANGINA; Start 01/07/17 at 15:00 Diagnostic Test (Pha) (Accu-Chek) 1 ea 02 XX Last administered on 01/09/17 02 :09; Admin Dose 1 EA; Start 01/08/17 at 02:00 Miscellaneous Information 1 ea NOTE XX ; Start 01/07/17 at 17:00 Glucose (Glutose) 15 gm Q15M PRN PO DECREASED GLUCOSE; Start 01/07/17 at 17:00 Glucose (Glutose) 22.5 gm Q15M PRN PO DECREASED GLUCOSE; Start 01/07/17 at 17: 00 Dextrose (D50w Syringe) 25 ml Q15M PRN IV DECREASED GLUCOSE; Start 01/07/17 at 17:00 Dextrose (D50w Syringe) 50 ml Q15M PRN IV DECREASED GLUCOSE; Start 01/07/17 at 17:00 Glucagon (Glucagen) 1 mg Q15M PRN IM DECREASED GLUCOSE; Start 01/07/17 at 17: 00 Glucose (Glutose) 15 gm Q15M PRN BUCCAL DECREASED GLUCOSE; Start 01/07/17 at 17:00 Ciprofloxacin (Cipro) 500 mg BID PO Last administered on 01/12/17t 12:01; Admin Dose 500 MG; Start 01/12/17 at 10:30 Enoxaparin Sodium (Lovenox) 40 mg DAILY SC ; Start 01/12/17 at 11:00 THANG BELLE Jan 12, 2017 16:07
[2017-01-12] MEDS: ATORVASTATIN 40 MG TAB PO SCH (20:22)
[2017-01-13] VITALS (15 sets, daily range): BP systolic 108–136; BP diastolic 56–88; PULSE 72–92; RESP 16–20
[2017-01-13] MEDS: ALBUTEROL/IPRATROPIUM (NEB) 3 ML AMP HHN SCH ×4 (01:08→13:06)
[2017-01-13] MEDS: ACCU-CHEK XX SCH (02:14)
[2017-01-13] MEDS: FUROSEMIDE 40 MG INJ IV SCH ×2 (05:25→17:32)
[2017-01-13] MEDS: INSULIN ASPART [NOVOLOG] 3 ML PEN SC SCH ×4 (08:51→20:06)
[2017-01-13] MEDS: ENOXAPARIN 40 MG/0.4 ML SYG SC SCH (08:52)
[2017-01-13] MEDS: CIPROFLOXACIN 500 MG TAB PO SCH ×2 (08:53→20:01)
[2017-01-13] MEDS: LOSARTAN 25 MG TAB PO SCH ×2 (08:53→20:01)
[2017-01-13] MEDS: METOPROLOL (XL) 50 MG TAB PO SCH (08:53)
[2017-01-13] MEDS: ASPIRIN 81 MG TAB PO SCH (08:53)
[2017-01-13] MEDS ORDERED: POTASSIUM CHLORIDE (SR) 20 MEQ TAB PO STA (10:23)
--- NOTE | 2017-01-13 10:27 | PN ---
Date/Time of Note Date/Time of Note DATE: 01/13/17 TIME: 10:26 Assessment/Plan VTE Prophylaxis VTE Prophylaxis Intervention: LMWH Lines/Catheters IV Catheter Type (from Nrsg): Peripheral IV Assessment/Plan Assessment/Plan 76-year-old female: 1. Acute on chronic diastolic CHF, improved respiratory status with Lasix and nebs prn. 2D echocardiogram results with EF 55 %. Continue diuresis, Lasix dose decreased, Lovenox changed to prophylactic dosing. Nebulizer treatment, we will change to Xopenex scheduled q. 8 and DuoNeb every 4h as needed. 2. STEMI, in setting of flu-like symptoms and febrile illness, patient status post angiogram with finding of 3 vessel disease and likely aortic valve disease. 2D echocardiogram with normal Aortic Valve and EF of 55% Appreciate recommendations from cardiothoracic surgery. Currently medical management for acute [place] along with treatment of underlying febrile illness. Continue aspirin, beta blockers, statin therapy. Per cardiothoracic surgery, Dr. Diana, patient needs to be treated for this acute illness first prior to undergoing surgical revascularization. 3. E. coli UTI, patient presented with febrile illness and generalized weakness. WBC back to normal 2 days. Antibiotics adjusted to ciprofloxacin p.o. 500 mg twice daily with goal to complete total of 14 days. 4. Diabetes mellitus, according to family patient nondiabetic, unclear who prescribed or when Januvia was prescribed. A1c 6.5. Agree with sliding scale insulin and ADA diet. 5. Hypertension. Continue current cardiac medications, further adjustments as needed. 6. Breast cancer. Resume outpatient medications Prophylaxis: GI prophylaxis with Pepcid, Lovenox changed to DVT prophylaxis dose Disposition: Patient stabilizing medically, treating UTI, medical management of acute [place], appreciate recommendations from cardiothoracic surgery, Patient supposed to move to [place] by 01/11 and get further medical care in [place]. It appears that as of 01/11, she is switching her insurance to [place] Per cardiothoracic surgery she can have her surgical revascularization in [place] in a week at the earliest. Given significant improvement of patient, discharge planning tomorrow to [place]. Ambulance transport will be arranged at the time of discharge. This was discussed with family. They have voiced that they needed 24 hour notification about discharge so that ambulance can be arranged. Case management has been arranging transportation, will also add home oxygen. Subjective 24 Hr Interval Summary Free Text/Dictation Patient doing much better, she is sitting up in chair, she did ambulate up to 100 feet today with 2 L nasal cannula on board. Discussed with physical therapy , she does need some oxygen on ambulation. Along with FWW will arrange for home O2 if possible. Exam/Review of Systems Vital Signs Vitals Vital Signs Date Time Temp Pulse Resp B/P Pulse Ox O2 Delivery O2 Flow Rate FiO2 01/13/17 09:10 Nasal Cannula 3.0 01/13/17 08:28 72 18 97 01/13/17 07:34 98.3 126/71 01/10/17 12:43 100 Intake and Output 01/12/17 01/12/17 01/13/17 15:00 23:00 07:00 Intake Total 400 ml 750 ml Balance 400 ml 750 ml Exam Constitutional: alert, oriented, other (Sitting up in chair), well developed Respiratory: diminished breath sounds (At the bases, bilaterally, much improved.), normal air movement Cardiovascular: nl pulses, regular rate and rhythm Gastrointestinal: non-tender, soft Musculoskeletal: nl extremities to inspection, nl gait and stance Extremities: normal pulses 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, nl mental status, nl speech, other (Improving weakness) Results Result Diagram: 01/13/17 0839 01/13/17 0839 Results 24 hrs Laboratory Tests Test 01/12/17 12:07 01/12/17 17:27 01/12/17 20:25 01/13/17 02:02 Bedside Glucose 152 101 226 H 87 Test 01/13/17 08:37 01/13/17 08:39 Bedside Glucose 149 White Blood Count 8.9 Red Blood Count 5.33 Hemoglobin 11.2 L Hematocrit 36.1 L Mean Corpuscular Volume 67.7 L Mean Corpuscular Hemoglobin 21.0 L Mean Corpuscular Hemoglobin Concent 31.0 L Red Cell Distribution Width 15.9 H Platelet Count 214 # Mean Platelet Volume 10.8 H Neutrophils % Lymphocytes % Monocytes % Eosinophils % Basophils % Nucleated Red Blood Cells % 0.0 Neutrophils # Lymphocytes # Monocytes # Eosinophils # Basophils # Nucleated Red Blood Cells # Sodium Level 135 Potassium Level 3.4 L Chloride Level 95 L Carbon Dioxide Level 30 Anion Gap 13 Blood Urea Nitrogen 15 Creatinine 0.86 Glucose Level 145 Calcium Level 7.7 L Phosphorus Level 2.6 Magnesium Level 2.1 Medications Medications Current Medications Acetaminophen (Tylenol Tab) 650 mg Q4H PRN PO NON-CARDIAC PAIN LEVEL (1-3) Last administered on 01/07/17 16:06; Admin Dose 650 MG; Start 01/07/17 at 13: 00 Morphine Sulfate (morphine) 2 mg Q2H PRN IV FOR NON CARDIAC PAIN (4-10) Last administered on 01/09/17 01:47; Admin Dose 2 MG; Start 01/07/17 at 13:00 Al Hydrox/Mg Hydrox/Simethicone (Mag-Al Plus) 30 ml Q4H PRN PO GASTROINTESTINAL UPSET; Start 01/07/17 at 13:00 Metoprolol Succinate (Toprol Xl) 50 mg DAILY PO Last administered on 01/13/17 08:53; Admin Dose 50 MG; Start 01/07/17 at 16:00 Losartan Potassium (Cozaar) 25 mg BID PO Last administered on 01/13/17 08:53; Admin Dose 25 MG; Start 01/07/17 at 16:00 Atorvastatin Calcium (Lipitor) 40 mg QHS PO Last administered on 01/12/17 20: 22; Admin Dose 40 MG; Start 01/07/17 at 21:00 Aspirin (Aspirin) 81 mg DAILY PO Last administered on 01/13/17 08:53; Admin Dose 81 MG; Start 01/08/17 at 09:00 Ondansetron HCl (Zofran Inj) 4 mg Q6H PRN IV NAUSEA AND/OR VOMITING; Start at 15:00 Acetaminophen (Tylenol Tab) 650 mg Q6H PRN PO PAIN LEVEL 1-3 OR FEVER Last administered on 01/08/17 15:54; Admin Dose 650 MG; Start 01/07/17 at 15:00 Acetaminophen/ Hydrocodone Bitart ([place] (5/325)) 1 tab Q6H PRN PO MODERATE PAIN LEVEL 4-6; Start 01/07/17 at 15:00 Morphine Sulfate (morphine) 2 mg Q4H PRN IV SEVERE PAIN LEVEL 7-10; Start at 15:00 Docusate Sodium (Colace) 100 mg Q12H PRN PO CONSTIPATION; Start 01/07/17 at 15 :00 Magnesium Hydroxide (Milk Of Mag) 30 ml DAILY PRN PO CONSTIPATION Last administered on 01/12/17 15:37; Admin Dose 30 ML; Start 01/07/17 at 15:00 Sodium Biphosphate/ Sodium Phosphate (Fleet Enema) 133 ml DAILY PRN [place] CONSTIPATION; Start 01/07/17 at 15:00 Lorazepam (Ativan) 0.5 mg Q6H PRN IV ANXIETY; Start 01/07/17 at 15:00 Hydralazine HCl (Apresoline) 10 mg Q6H PRN IV ELEVATED BLOOD PRESSURE; Start 01/07/17 at 15:00 Nitroglycerin (Nitroglycerin (Sl Tab) 0.4 Mg) 1 tab Q5M PRN SL ANGINA; Start 01/07/17 at 15:00 Diagnostic Test (Pha) (Accu-Chek) 1 ea 02 XX Last administered on 01/13/17 02: 14; Admin Dose 1 EA; Start 01/08/17 at 02:00 Miscellaneous Information 1 ea NOTE XX ; Start 01/07/17 at 17:00 Glucose (Glutose) 15 gm Q15M PRN PO DECREASED GLUCOSE; Start 01/07/17 at 17:00 Glucose (Glutose) 22.5 gm Q15M PRN PO DECREASED GLUCOSE; Start 01/07/17 at 17: 00 Dextrose (D50w Syringe) 25 ml Q15M PRN IV DECREASED GLUCOSE; Start 01/07/17 at 17:00 Dextrose (D50w Syringe) 50 ml Q15M PRN IV DECREASED GLUCOSE; Start 01/07/17 at 17:00 Glucagon (Glucagen) 1 mg Q15M PRN IM DECREASED GLUCOSE; Start 01/07/17 at 17: 00 Glucose (Glutose) 15 gm Q15M PRN BUCCAL DECREASED GLUCOSE; Start 01/07/17 at 17:00 Ciprofloxacin (Cipro) 500 mg BID PO Last administered on 01/13/17 08:53; Admin Dose 500 MG; Start 01/12/17 at 10:30 Enoxaparin Sodium (Lovenox) 40 mg DAILY SC Last administered on 01/13/17 08:52 ; Admin Dose 40 MG; Start 01/12/17 at 11:00 THANG BELLE Jan 13, 2017 10:27
--- NOTE | 2017-01-13 14:10 | PDOCDIS ---
Discharge Instructions CONDITION Patient Condition: Stable HOME CARE INSTRUCTIONS: Special Diet: LOW SALT ACTIVITY: Activity Restrictions: Slowly Increase Activity FOLLOW UP/APPOINTMENTS Follow-up Plan Follow-up with primary care physician early next week as patient needs further set up and referrals to cardiology regarding her coronary artery disease and recent CHF exacerbation and also with cardiothoracic surgery regarding her need for triple bypass surgery in the near future. THANG BELLE Jan 13, 2017 14:10
[2017-01-13] MEDS ORDERED: LACT1CAP28 PO (14:22)
[2017-01-13] MEDS ORDERED: CIPR500T4 PO (14:22)
[2017-01-13] MEDS ORDERED: ATOR40TA68 PO (14:22)
[2017-01-13] MEDS ORDERED: FURO40TA4 PO (14:22)
[2017-01-13] MEDS ORDERED: ASPI81TA3 PO (14:22)
[2017-01-13] MEDS ORDERED: METO-319 PO (14:22)
[2017-01-13] MEDS ORDERED: LOSA25TA2 PO (14:22)
[2017-01-13] MEDS ORDERED: POTA20TA96 PO (14:22)
[2017-01-13] MEDS: LACTOBACILLUS RHAMNOSUS CAP PO SCH ×2 (15:54→22:00)
[2017-01-13] MEDS: LEVALBUTEROL (NEB) 0.63 MG/3 ML AMP HHN SCH (16:00)
[2017-01-13] MEDS: ATORVASTATIN 40 MG TAB PO SCH (20:00)
[2017-01-14 00:12] VITALS: PULSE 69
[2017-01-14] MEDS: LEVALBUTEROL (NEB) 0.63 MG/3 ML AMP HHN SCH ×2 (01:41→08:49)
[2017-01-14] MEDS: ACCU-CHEK XX SCH (02:14)
[2017-01-14 03:42] VITALS: BP 111/60; RESP 18
[2017-01-14 04:11] VITALS: PULSE 82
[2017-01-14] MEDS: FUROSEMIDE 40 MG INJ IV SCH (05:20)
[2017-01-14 08:11] VITALS: BP 114/65; RESP 19
[2017-01-14 08:14] VITALS: PULSE 92
[2017-01-14] MEDS: INSULIN ASPART [NOVOLOG] 3 ML PEN SC SCH (08:33)
[2017-01-14] MEDS: CIPROFLOXACIN 500 MG TAB PO SCH (09:37)
[2017-01-14] MEDS: LOSARTAN 25 MG TAB PO SCH (09:37)
[2017-01-14] MEDS: ASPIRIN 81 MG TAB PO SCH (09:37)
[2017-01-14] MEDS: METOPROLOL (XL) 50 MG TAB PO SCH (09:38)
[2017-01-14] MEDS: LACTOBACILLUS RHAMNOSUS CAP PO SCH (09:38)
--- NOTE | 2017-01-14 10:01 | PN ---
Date/Time of Note Date/Time of Note DATE: 01/14/17 TIME: 09:37 Assessment/Plan VTE Prophylaxis VTE Prophylaxis Intervention: LMWH Lines/Catheters IV Catheter Type (from Nrsg): Saline Lock Assessment/Plan Assessment/Plan 76-year-old female: 1. Acute on chronic diastolic CHF, improved respiratory status with Lasix and nebs prn. Patient doing well, on and off on room air. He does get short of breath with ambulation. ABG with PaO2 < 60 on room air, home O2 arrangement have been requested yesterday. 2D echocardiogram results with EF 55 %. Continue patient to be discharged today on oral Lasix, supplemental potassium. BMP stable. Nebulizer treatment. 2. STEMI, in setting of flu-like symptoms and febrile illness, patient status post angiogram with finding of 3 vessel disease and likely aortic valve disease. 2D echocardiogram with normal Aortic Valve and EF of 55% Appreciate recommendations from cardiothoracic surgery. Currently medical management for acute [place] along with treatment of underlying febrile illness. Continue aspirin, beta blockers, statin therapy. Per cardiothoracic surgery, Dr. Diana, patient needs to be treated for this acute illness first prior to undergoing surgical revascularization. 3. E. coli UTI, patient presented with febrile illness and generalized weakness. WBC back to normal 2 days. Antibiotics adjusted to ciprofloxacin p.o. 500 mg twice daily with goal to complete total of 14 days. 4. Diabetes mellitus, according to family patient nondiabetic, unclear who prescribed or when Januvia was prescribed. A1c 6.5. Discussed with patient's daughter, patient will be discharged on a diabetic/ cardiac diet, glucometer prescription has been given, I have advised them to log the patient's blood sugar and go with fluid with her new primary care physician they will decide from there if she does need oral hypoglycemic versus diet control. 5. Hypertension. Continue current cardiac medications, further adjustments as needed. 6. Breast cancer. Resume outpatient medications Prophylaxis: GI prophylaxis with Pepcid, Lovenox changed to DVT prophylaxis dose Disposition: Patient stabilized medically, no further complaints, on and off on room air, much more comfortable, ambulating with walker. Home oxygen being arranged to be delivered in [place]. Patient discharged today to [place], awaiting ambulance transport with a pickup so far scheduled this morning at 10 AM. Follow-up with primary care physician within 1 week, upon arrival in [place]. Patient has switched insurance to [place], per cardiothoracic surgery she can have her surgical revascularization in [place] in a week at the earliest. Subjective 24 Hr Interval Summary Free Text/Dictation Patient stable this morning, she has been tolerating diuresis very well, she is awaiting ambulance pickup for discharge. Daughter at the bedside has been updated, all prescriptions already filled, they have been given prescription for glucometer. Instructions have been given. Exam/Review of Systems Vital Signs Vitals Vital Signs Date Time Temp Pulse Resp B/P Pulse Ox O2 Delivery O2 Flow Rate FiO2 01/14/17 08:49 95 18 99 Nasal Cannula 2.0 01/14/17 08:11 98.1 114/65 01/10/17 12:43 100 Intake and Output 01/13/17 01/13/17 01/14/17 15:00 23:00 07:00 Intake Total 1200 ml 700 ml Output Total 1600 ml Balance -400 ml 700 ml Exam Constitutional: alert, oriented, well developed Respiratory: clear to auscultation, normal air movement Cardiovascular: nl pulses, regular rate and rhythm Gastrointestinal: non-tender, soft Musculoskeletal: nl extremities to inspection Extremities: normal pulses, other (No edema, clubbing or cyanosis) 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, nl mental status, nl speech, other (Improved weakness) Results Result Diagram: 01/13/17 0839 01/14/17 0819 Results 24 hrs Laboratory Tests Test 01/13/17 11:54 01/13/17 17:19 01/13/17 17:39 01/13/17 20:02 Bedside Glucose 130 108 213 Blood Gas Specimen Source Blood arterial Arterial Blood Date Drawn 01/13/2017 6:05:05 PM Arterial Blood pH (Temp corrected) 7.479 H Arterial Blood pCO2 (Temp correct) 40.4 Arterial Blood pO2 (Temp corrected) 58.2 L Arterial Blood HCO3 29.3 H Arterial Blood Base Excess 5.4 H Arterial Blood Oxygen Saturation 91.9 L Juma Test N/A Arterial Blood Gas Puncture Site Right Brachial Arterial Blood Carboxyhemoglobin 0.6 Arterial Blood Methemoglobin 0.2 Blood Gas A-a O2 Differential 43.2 H Oxyhemoglobin Percent 91.2 L Total Hemoglobin 13.0 Blood Gas Temperature 37.0 Blood Gas Modality ROOM AIR FiO2 21.0 Blood Gas Critical Value Read Back LEONARDO NIEVES Blood Gas Notified Whom FISH Blood Gas Notified Time 01/13/2017 6:17:00 PM Test 01/14/17 02:03 01/14/17 08:15 01/14/17 08:19 01/14/17 08:28 Bedside Glucose 88 182 Magnesium Level 2.1 Sodium Level 136 Potassium Level 4.0 Chloride Level 95 L Carbon Dioxide Level 31 Anion Gap 14 Blood Urea Nitrogen 17 Creatinine 0.90 Glucose Level 161 Calcium Level 8.6 Medications Medications Current Medications Acetaminophen (Tylenol Tab) 650 mg Q4H PRN PO NON-CARDIAC PAIN LEVEL (1-3) Last administered on 01/07/17 16:06; Admin Dose 650 MG; Start 01/07/17 at 13: 00 Morphine Sulfate (morphine) 2 mg Q2H PRN IV FOR NON CARDIAC PAIN (4-10) Last administered on 01/09/17 01:47; Admin Dose 2 MG; Start 01/07/17 at 13:00 Al Hydrox/Mg Hydrox/Simethicone (Mag-Al Plus) 30 ml Q4H PRN PO GASTROINTESTINAL UPSET; Start 01/07/17 at 13:00 Metoprolol Succinate (Toprol Xl) 50 mg DAILY PO Last administered on 01/13/17 08:53; Admin Dose 50 MG; Start 01/07/17 at 16:00 Losartan Potassium (Cozaar) 25 mg BID PO Last administered on 01/13/17 20:01; Admin Dose 25 MG; Start 01/07/17 at 16:00 Atorvastatin Calcium (Lipitor) 40 mg QHS PO Last administered on 01/13/17 20: 00; Admin Dose 40 MG; Start 01/07/17 at 21:00 Aspirin (Aspirin) 81 mg DAILY PO Last administered on 01/13/17 08:53; Admin Dose 81 MG; Start 01/08/17 at 09:00 Ondansetron HCl (Zofran Inj) 4 mg Q6H PRN IV NAUSEA AND/OR VOMITING; Start at 15:00 Acetaminophen (Tylenol Tab) 650 mg Q6H PRN PO PAIN LEVEL 1-3 OR FEVER Last administered on 01/08/17 15:54; Admin Dose 650 MG; Start 01/07/17 at 15:00 Acetaminophen/ Hydrocodone Bitart ([place] (5/325)) 1 tab Q6H PRN PO MODERATE PAIN LEVEL 4-6; Start 01/07/17 at 15:00 Morphine Sulfate (morphine) 2 mg Q4H PRN IV SEVERE PAIN LEVEL 7-10; Start at 15:00 Docusate Sodium (Colace) 100 mg Q12H PRN PO CONSTIPATION; Start 01/07/17 at 15 :00 Magnesium Hydroxide (Milk Of Mag) 30 ml DAILY PRN PO CONSTIPATION Last administered on 01/12/17 15:37; Admin Dose 30 ML; Start 01/07/17 at 15:00 Sodium Biphosphate/ Sodium Phosphate (Fleet Enema) 133 ml DAILY PRN [place] CONSTIPATION; Start 01/07/17 at 15:00 Lorazepam (Ativan) 0.5 mg Q6H PRN IV ANXIETY; Start 01/07/17 at 15:00 Hydralazine HCl (Apresoline) 10 mg Q6H PRN IV ELEVATED BLOOD PRESSURE; Start 01/07/17 at 15:00 Nitroglycerin (Nitroglycerin (Sl Tab) 0.4 Mg) 1 tab Q5M PRN SL ANGINA; Start 01/07/17 at 15:00 Diagnostic Test (Pha) (Accu-Chek) 1 ea 02 XX Last administered on 01/14/17 02: 14; Admin Dose 1 EA; Start 01/08/17 at 02:00 Miscellaneous Information 1 ea NOTE XX ; Start 01/07/17 at 17:00 Glucose (Glutose) 15 gm Q15M PRN PO DECREASED GLUCOSE; Start 01/07/17 at 17:00 Glucose (Glutose) 22.5 gm Q15M PRN PO DECREASED GLUCOSE; Start 01/07/17 at 17: 00 Dextrose (D50w Syringe) 25 ml Q15M PRN IV DECREASED GLUCOSE; Start 01/07/17 at 17:00 Dextrose (D50w Syringe) 50 ml Q15M PRN IV DECREASED GLUCOSE; Start 01/07/17 at 17:00 Glucagon (Glucagen) 1 mg Q15M PRN IM DECREASED GLUCOSE; Start 01/07/17 at 17: 00 Glucose (Glutose) 15 gm Q15M PRN BUCCAL DECREASED GLUCOSE; Start 01/07/17 at 17:00 Ciprofloxacin (Cipro) 500 mg BID PO Last administered on 01/13/17 20:01; Admin Dose 500 MG; Start 01/12/17 at 10:30 Enoxaparin Sodium (Lovenox) 40 mg DAILY SC Last administered on 01/13/17 08:52 ; Admin Dose 40 MG; Start 01/12/17 at 11:00 Lactobacillus Acidophilus/ Rhamnosus (Culturelle) 1 cap BID PO Last administered on 01/13/17 22:00; Admin Dose 1 CAP; Start 01/13/17 at 15:00 THANG BELLE Jan 14, 2017 09:59
--- NOTE | 2017-01-14 10:01 | PN ---
Date/Time of Note Date/Time of Note DATE: 01/14/17 TIME: 09:37 Assessment/Plan VTE Prophylaxis VTE Prophylaxis Intervention: LMWH Lines/Catheters IV Catheter Type (from Nrsg): Saline Lock Assessment/Plan Assessment/Plan 76-year-old female: 1. Acute on chronic diastolic CHF, improved respiratory status with Lasix and nebs prn. Patient doing well, on and off on room air. He does get short of breath with ambulation. ABG with PaO2 < 60 on room air, home O2 arrangement have been requested yesterday. 2D echocardiogram results with EF 55 %. Continue patient to be discharged today on oral Lasix, supplemental potassium. BMP stable. Nebulizer treatment. 2. STEMI, in setting of flu-like symptoms and febrile illness, patient status post angiogram with finding of 3 vessel disease and likely aortic valve disease. 2D echocardiogram with normal Aortic Valve and EF of 55% Appreciate recommendations from cardiothoracic surgery. Currently medical management for acute [place] along with treatment of underlying febrile illness. Continue aspirin, beta blockers, statin therapy. Per cardiothoracic surgery, Dr. Diana, patient needs to be treated for this acute illness first prior to undergoing surgical revascularization. 3. E. coli UTI, patient presented with febrile illness and generalized weakness. WBC back to normal 2 days. Antibiotics adjusted to ciprofloxacin p.o. 500 mg twice daily with goal to complete total of 14 days. 4. Diabetes mellitus, according to family patient nondiabetic, unclear who prescribed or when Januvia was prescribed. A1c 6.5. Discussed with patient's daughter, patient will be discharged on a diabetic/ cardiac diet, glucometer prescription has been given, I have advised them to log the patient's blood sugar and go with fluid with her new primary care physician they will decide from there if she does need oral hypoglycemic versus diet control. 5. Hypertension. Continue current cardiac medications, further adjustments as needed. 6. Breast cancer. Resume outpatient medications Prophylaxis: GI prophylaxis with Pepcid, Lovenox changed to DVT prophylaxis dose Disposition: Patient stabilized medically, no further complaints, on and off on room air, much more comfortable, ambulating with walker. Home oxygen being arranged to be delivered in [place]. Patient discharged today to [place], awaiting ambulance transport with a pickup so far scheduled this morning at 10 AM. Follow-up with primary care physician within 1 week, upon arrival in [place]. Patient has switched insurance to [place], per cardiothoracic surgery she can have her surgical revascularization in [place] in a week at the earliest. Subjective 24 Hr Interval Summary Free Text/Dictation Patient stable this morning, she has been tolerating diuresis very well, she is awaiting ambulance pickup for discharge. Daughter at the bedside has been updated, all prescriptions already filled, they have been given prescription for glucometer. Instructions have been given. Exam/Review of Systems Vital Signs Vitals Vital Signs Date Time Temp Pulse Resp B/P Pulse Ox O2 Delivery O2 Flow Rate FiO2 01/14/17 08:49 95 18 99 Nasal Cannula 2.0 01/14/17 08:11 98.1 114/65 01/10/17 12:43 100 Intake and Output 01/13/17 01/13/17 01/14/17 15:00 23:00 07:00 Intake Total 1200 ml 700 ml Output Total 1600 ml Balance -400 ml 700 ml Exam Constitutional: alert, oriented, well developed Respiratory: clear to auscultation, normal air movement Cardiovascular: nl pulses, regular rate and rhythm Gastrointestinal: non-tender, soft Musculoskeletal: nl extremities to inspection Extremities: normal pulses, other (No edema, clubbing or cyanosis) 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, nl mental status, nl speech, other (Improved weakness) Results Result Diagram: 01/13/17 0839 01/14/17 0819 Results 24 hrs Laboratory Tests Test 01/13/17 11:54 01/13/17 17:19 01/13/17 17:39 01/13/17 20:02 Bedside Glucose 130 108 213 Blood Gas Specimen Source Blood arterial Arterial Blood Date Drawn 01/13/2017 6:05:05 PM Arterial Blood pH (Temp corrected) 7.479 H Arterial Blood pCO2 (Temp correct) 40.4 Arterial Blood pO2 (Temp corrected) 58.2 L Arterial Blood HCO3 29.3 H Arterial Blood Base Excess 5.4 H Arterial Blood Oxygen Saturation 91.9 L Juma Test N/A Arterial Blood Gas Puncture Site Right Brachial Arterial Blood Carboxyhemoglobin 0.6 Arterial Blood Methemoglobin 0.2 Blood Gas A-a O2 Differential 43.2 H Oxyhemoglobin Percent 91.2 L Total Hemoglobin 13.0 Blood Gas Temperature 37.0 Blood Gas Modality ROOM AIR FiO2 21.0 Blood Gas Critical Value Read Back LEONARDO NIEVES Blood Gas Notified Whom FISH Blood Gas Notified Time 01/13/2017 6:17:00 PM Test 01/14/17 02:03 01/14/17 08:15 01/14/17 08:19 01/14/17 08:28 Bedside Glucose 88 182 Magnesium Level 2.1 Sodium Level 136 Potassium Level 4.0 Chloride Level 95 L Carbon Dioxide Level 31 Anion Gap 14 Blood Urea Nitrogen 17 Creatinine 0.90 Glucose Level 161 Calcium Level 8.6 Medications Medications Current Medications Acetaminophen (Tylenol Tab) 650 mg Q4H PRN PO NON-CARDIAC PAIN LEVEL (1-3) Last administered on 01/07/17 16:06; Admin Dose 650 MG; Start 01/07/17 at 13: 00 Morphine Sulfate (morphine) 2 mg Q2H PRN IV FOR NON CARDIAC PAIN (4-10) Last administered on 01/09/17 01:47; Admin Dose 2 MG; Start 01/07/17 at 13:00 Al Hydrox/Mg Hydrox/Simethicone (Mag-Al Plus) 30 ml Q4H PRN PO GASTROINTESTINAL UPSET; Start 01/07/17 at 13:00 Metoprolol Succinate (Toprol Xl) 50 mg DAILY PO Last administered on 01/13/17 08:53; Admin Dose 50 MG; Start 01/07/17 at 16:00 Losartan Potassium (Cozaar) 25 mg BID PO Last administered on 01/13/17 20:01; Admin Dose 25 MG; Start 01/07/17 at 16:00 Atorvastatin Calcium (Lipitor) 40 mg QHS PO Last administered on 01/13/17 20: 00; Admin Dose 40 MG; Start 01/07/17 at 21:00 Aspirin (Aspirin) 81 mg DAILY PO Last administered on 01/13/17 08:53; Admin Dose 81 MG; Start 01/08/17 at 09:00 Ondansetron HCl (Zofran Inj) 4 mg Q6H PRN IV NAUSEA AND/OR VOMITING; Start at 15:00 Acetaminophen (Tylenol Tab) 650 mg Q6H PRN PO PAIN LEVEL 1-3 OR FEVER Last administered on 01/08/17 15:54; Admin Dose 650 MG; Start 01/07/17 at 15:00 Acetaminophen/ Hydrocodone Bitart ([place] (5/325)) 1 tab Q6H PRN PO MODERATE PAIN LEVEL 4-6; Start 01/07/17 at 15:00 Morphine Sulfate (morphine) 2 mg Q4H PRN IV SEVERE PAIN LEVEL 7-10; Start at 15:00 Docusate Sodium (Colace) 100 mg Q12H PRN PO CONSTIPATION; Start 01/07/17 at 15 :00 Magnesium Hydroxide (Milk Of Mag) 30 ml DAILY PRN PO CONSTIPATION Last administered on 01/12/17 15:37; Admin Dose 30 ML; Start 01/07/17 at 15:00 Sodium Biphosphate/ Sodium Phosphate (Fleet Enema) 133 ml DAILY PRN [place] CONSTIPATION; Start 01/07/17 at 15:00 Lorazepam (Ativan) 0.5 mg Q6H PRN IV ANXIETY; Start 01/07/17 at 15:00 Hydralazine HCl (Apresoline) 10 mg Q6H PRN IV ELEVATED BLOOD PRESSURE; Start 01/07/17 at 15:00 Nitroglycerin (Nitroglycerin (Sl Tab) 0.4 Mg) 1 tab Q5M PRN SL ANGINA; Start 01/07/17 at 15:00 Diagnostic Test (Pha) (Accu-Chek) 1 ea 02 XX Last administered on 01/14/17 02: 14; Admin Dose 1 EA; Start 01/08/17 at 02:00 Miscellaneous Information 1 ea NOTE XX ; Start 01/07/17 at 17:00 Glucose (Glutose) 15 gm Q15M PRN PO DECREASED GLUCOSE; Start 01/07/17 at 17:00 Glucose (Glutose) 22.5 gm Q15M PRN PO DECREASED GLUCOSE; Start 01/07/17 at 17: 00 Dextrose (D50w Syringe) 25 ml Q15M PRN IV DECREASED GLUCOSE; Start 01/07/17 at 17:00 Dextrose (D50w Syringe) 50 ml Q15M PRN IV DECREASED GLUCOSE; Start 01/07/17 at 17:00 Glucagon (Glucagen) 1 mg Q15M PRN IM DECREASED GLUCOSE; Start 01/07/17 at 17: 00 Glucose (Glutose) 15 gm Q15M PRN BUCCAL DECREASED GLUCOSE; Start 01/07/17 at 17:00 Ciprofloxacin (Cipro) 500 mg BID PO Last administered on 01/13/17 20:01; Admin Dose 500 MG; Start 01/12/17 at 10:30 Enoxaparin Sodium (Lovenox) 40 mg DAILY SC Last administered on 01/13/17 08:52 ; Admin Dose 40 MG; Start 01/12/17 at 11:00 Lactobacillus Acidophilus/ Rhamnosus (Culturelle) 1 cap BID PO Last administered on 01/13/17 22:00; Admin Dose 1 CAP; Start 01/13/17 at 15:00 THANG BELLE Jan 14, 2017 09:59
== END 2017-01-14 10:50 | disposition home or self-care (01) | DRG 280 ==
LOC: E/R 10:37 → MS4 13:09
PROVIDERS: ADMIT Hospitalist; ATTEND Legal Medicine
PROC: B211YZZ Fluoroscopy of Multiple Coronary Arteries using Other Contrast (ICD-10-PCS; 2017-01-07)
PROC: B215YZZ Fluoroscopy of Left Heart using Other Contrast (ICD-10-PCS; 2017-01-07)
PROC: 4A023N7 Measurement of Cardiac Sampling and Pressure, Left Heart, Percutaneous Approach (ICD-10-PCS; principal; 2017-01-07 11:30)
DX: I21.29 ST elevation (STEMI) myocardial infarction involving other sites (principal); I50.33 Acute on chronic diastolic (congestive) heart failure; J44.9 Chronic obstructive pulmonary disease, unspecified; N39.0 Urinary tract infection, site not specified; E11.9 Type 2 diabetes mellitus without complications; B96.20 Unspecified Escherichia coli [E. coli] as the cause of diseases classified elsewhere; I11.0 Hypertensive heart disease with heart failure; E78.5 Hyperlipidemia, unspecified; D72.829 Elevated white blood cell count, unspecified; I25.5 Ischemic cardiomyopathy; I25.119 Atherosclerotic heart disease of native coronary artery with unspecified angina pectoris; B18.2 Chronic viral hepatitis C; Z79.4 Long term (current) use of insulin; Z85.3 Personal history of malignant neoplasm of breast; Z90.12 Acquired absence of left breast and nipple
CPT/HCPCS: 36415; 36600; 71010; 80048; 80053; 80061; 81001; 82550; 82553; 82803; 82962; 83036; 83735; 83880; 84100; 84439; 84443; 84484; 85025; 85610; 85730; 87086; 93005; 93306; 93458; 93880; 94640; 94664; 96374; 97110; 97116; 97161; J1940; C1887; J0696; J1644; J1650; J1815; J2250; J2270; J2405; J3010; J3475; J3480; J7030; J7040; J7042; J7050